=== PATIENT | male | born 1965 | race Caucasian/White ===

== ENCOUNTER 2019-01-04 16:12 | Emergency (ER) | payer MEDICAID ==
[~2019-01-04] VITALS: Ht 172.7 cm; Wt 127.4 kg
[~2019-01-04 16:12] MED LIST: HYDR-4383 PO; NO HOME MEDS
[2019-01-04] MEDS ORDERED: ketorolac trometh inj. 60 MG/2 ML VIAL IM ONE (16:55)
[2019-01-04] MEDS ORDERED: ibuprofen tablet 400 MG TABLET PO ONE (17:00)
[2019-01-04 17:18] LABS: BASOPHILS % (AUTO) 0.4 % (0-1); EOSINOPHILS # (AUTO) 0.1 X10'3 (0-0.9); EOSINOPHILS % (AUTO) 1.4 % (0-6); HEMATOCRIT 53.5 % (42.0-52.0); LYMPHOCYTES # (AUTO) 3.6 X10'3 (1.1-4.8); LYMPHOCYTES % (AUTO) 40.3 % (21-51); MEAN CORPUSCULAR HEMOGLOBIN 32.4 PG (27.0-31.0); MEAN CORPUSCULAR HGB CONC 34.6 g/dL (33.0-36.5); MEAN CORPUSCULAR VOLUME 93.7 FL (78-98); MEAN PLATELET VOLUME 8.8 FL (7.4-10.4); MONOCYTES # (AUTO) 0.8 X10'3 (0-0.9); MONOCYTES % (AUTO) 8.3 % (2-12); NEUTROPHILS # (AUTO) 4.5 X10'3 (1.8-7.7); NEUTROPHILS % (AUTO) 49.6 % (42-75); PLATELET COUNT 224 X10'3 (140-440); RED BLOOD COUNT 5.71 X10'6 (4.70-6.10); RED CELL DISTRIBUTION WIDTH 13.6 % (11.5-14.5)
[2019-01-04 17:21] LABS: HEMOGLOBIN 18.5 g/dl (14.0-17.9)
[2019-01-04 17:24] LABS: ALANINE AMINOTRANSFERASE 73 U/L (12-78); ALBUMIN 4.1 G/DL (3.4-5.0); ALBUMIN/GLOBULIN RATIO 1.1 (1.1-1.5); ALKALINE PHOSPHATASE 59 IU/L (46-116); ANION GAP 9 (8-16); ASPARTATE AMINO TRANSFERASE 43 U/L (10-37); BILIRUBIN,TOTAL 0.5 MG/DL (0.1-1.0); BLOOD UREA NITROGEN 17 MG/DL (7-18); BUN/CREATININE RATIO 18.9 (5.4-32.0); CALCIUM 9.7 MG/DL (8.5-10.1); CHLORIDE 108 MMOL/L (99-107); GLUCOSE 96 MG/DL (70-104); LIPASE 310 U/L (73-393); POTASSIUM 4.2 MMOL/L (3.5-5.1); SODIUM 144 MMOL/L (135-145); TOTAL PROTEIN 7.7 G/DL (6.4-8.2); eGFR 88 ML/MIN
[2019-01-04] MEDS ORDERED: METR-159 PO (17:31)
[2019-01-04] MEDS ORDERED: CIPR-230 PO (17:31)
[2019-01-04 17:42] VITALS: BP 155/88
[2019-01-04 19:54] LABS: CLARITY,URINE CLEAR (Clear); COLOR,URINE YELLOW (Yellow); GLUCOSE, URINE NEGATIVE (Neg); KETONES,URINE NEGATIVE (Neg); LEUKOCYTE ESTERASE ,URINE NEGATIVE (Neg); NITRITES, URINE NEGATIVE (Neg); OCCULT BLOOD,URINE NEGATIVE (Neg); PH,URINE 5.5 (4.8-8.0); PROTEIN,URINE NEGATIVE (Neg); UROBILINOGEN,URINE 0.2 E.U/dL (0.2-1.0)
[2019-01-04 20:05] LABS: UA COLLECTION TYPE CLN CATCH MIDSTREAM
== END 2019-01-04 17:44 | disposition home or self-care (01) ==
LOC: ER 16:13
DX: K57.92 Diverticulitis of intestine, part unspecified, without perforation or abscess without bleeding (principal); K92.1 Melena; Z86.2 Personal history of diseases of the blood and blood-forming organs and certain disorders involving the immune mechanism; F17.200 Nicotine dependence, unspecified, uncomplicated; F12.90 Cannabis use, unspecified, uncomplicated; F15.90 Other stimulant use, unspecified, uncomplicated; Z60.2 Problems related to living alone; Z56.0 Unemployment, unspecified; Z79.899 Other long term (current) drug therapy
CPT/HCPCS: 36415; 80053; 81003; 83690; 85025; 85610; 99283

== ENCOUNTER 2020-07-06 16:42 | Emergency (ER) | payer MEDICAID ==
[~2020-07-06] VITALS: Ht 172.7 cm; Wt 131.0 kg
[2020-07-06 16:59] VITALS: BP 159/100
== END 2020-07-06 17:44 | disposition home or self-care (01) ==
LOC: ER 16:42
DX: S50.812A Abrasion of left forearm, initial encounter (principal); F12.90 Cannabis use, unspecified, uncomplicated; F15.90 Other stimulant use, unspecified, uncomplicated; Z86.69 Personal history of other diseases of the nervous system and sense organs; Z86.14 Personal history of Methicillin resistant Staphylococcus aureus infection; Z72.89 Other problems related to lifestyle; Z60.2 Problems related to living alone; Z56.0 Unemployment, unspecified; Z79.899 Other long term (current) drug therapy; X58.XXXA Exposure to other specified factors, initial encounter; Y93.89 Activity, other specified; Y92.89 Other specified places as the place of occurrence of the external cause; Y99.8 Other external cause status
CPT/HCPCS: 99281; 99284

== ENCOUNTER 2020-09-05 04:51 | Emergency (ER) | payer MEDICAID ==
[~2020-09-05] VITALS: Ht 172.7 cm; Wt 132.3 kg
[2020-09-05 05:58] LABS: CLARITY,URINE CLEAR (Clear); COLOR,URINE YELLOW (Yellow); GLUCOSE, URINE NEGATIVE (Neg); KETONES,URINE NEGATIVE (Neg); LEUKOCYTE ESTERASE ,URINE NEGATIVE (Neg); NITRITES, URINE NEGATIVE (Neg); OCCULT BLOOD,URINE NEGATIVE (Neg); PROTEIN,URINE NEGATIVE (Neg)
[2020-09-05 06:04] LABS: UA COLLECTION TYPE CLN CATCH MIDSTREAM
[2020-09-05 06:06] LABS: BASOPHILS % (AUTO) 0.4 % (0-1); EOSINOPHILS # (AUTO) 0.1 X10'3 (0-0.9); HEMATOCRIT 51.2 % (42.0-52.0); HEMOGLOBIN 17.5 g/dl (14.0-17.9); LYMPHOCYTES # (AUTO) 3.1 X10'3 (1.1-4.8); LYMPHOCYTES % (AUTO) 26.6 % (21-51); MEAN CORPUSCULAR HEMOGLOBIN 32.1 PG (27.0-31.0); MEAN CORPUSCULAR HGB CONC 34.3 g/dL (33.0-36.5); MEAN CORPUSCULAR VOLUME 93.7 FL (78-98); MEAN PLATELET VOLUME 8.9 FL (7.4-10.4); MONOCYTES # (AUTO) 0.9 X10'3 (0-0.9); NEUTROPHILS # (AUTO) 7.5 X10'3 (1.8-7.7); PLATELET COUNT 227 X10'3 (140-440); RED BLOOD COUNT 5.46 X10'6 (4.70-6.10); RED CELL DISTRIBUTION WIDTH 13.4 % (11.5-14.5); WHITE BLOOD COUNT 11.7 X10'3 (4.5-11.0)
[2020-09-05 06:11] LABS: ALANINE AMINOTRANSFERASE 56 U/L (12-78); ALBUMIN 3.9 G/DL (3.4-5.0); ALBUMIN/GLOBULIN RATIO 1.2 (1.1-1.5); ALKALINE PHOSPHATASE 64 IU/L (46-116); ANION GAP 7 (8-16); ASPARTATE AMINO TRANSFERASE 35 U/L (10-37); BILIRUBIN,TOTAL 0.9 MG/DL (0.1-1.0); BLOOD UREA NITROGEN 17 MG/DL (7-18); BUN/CREATININE RATIO 17.2 (5.4-32.0); CALCIUM 9.2 MG/DL (8.5-10.1); CHLORIDE 108 MMOL/L (99-107); CREATININE 0.99 MG/DL (0.60-1.10); GLUCOSE 113 MG/DL (70-104); LIPASE 186 U/L (73-393); POTASSIUM 4.2 MMOL/L (3.5-5.1); SODIUM 144 MMOL/L (135-145); TOTAL CARBON DIOXIDE 28.9 MMOL/L (24-32); TOTAL PROTEIN 7.1 G/DL (6.4-8.2); eGFR 78 ML/MIN
[2020-09-05] MEDS ORDERED: ondansetron/PF 4mg/2ml inj IV ONE (07:15)
[2020-09-05] MEDS ORDERED: normal saline 1000ML IV soln IVB ONE (07:15)
[2020-09-05] MEDS ORDERED: morphine 4 MG/ML inj SYRINge IV ONE (07:15)
[2020-09-05] MEDS ORDERED: ciprofloxacin 250mg tablet PO ONE (07:15)
[2020-09-05] MEDS ORDERED: metroNIDAZOLE 500mg tablet PO ONE (07:15)
[2020-09-05] MEDS ORDERED: CIPR-259 PO (09:03)
[2020-09-05] MEDS ORDERED: ONDA4TAB6 PO (09:03)
[2020-09-05] MEDS ORDERED: METR500T PO (09:03)
[2020-09-05] MEDS ORDERED: HYDR-3964 PO (09:03)
[2020-09-05 09:39] VITALS: BP 120/83
== END 2020-09-05 09:54 | disposition home or self-care (01) ==
LOC: ER 04:52
DX: K57.32 Diverticulitis of large intestine without perforation or abscess without bleeding (principal); F12.90 Cannabis use, unspecified, uncomplicated; F15.90 Other stimulant use, unspecified, uncomplicated; Z56.0 Unemployment, unspecified; Z86.14 Personal history of Methicillin resistant Staphylococcus aureus infection
CPT/HCPCS: 36415; 74176; 80053; 81003; 83690; 85025; 96361; 96374; 96375; 99284; J2270; J2405; J7030; J3490

== ENCOUNTER 2021-01-05 18:11 | Emergency (ER) | payer MEDICAID ==
[~2021-01-05] VITALS: Ht 172.7 cm; Wt 122.7 kg
[~2021-01-05 18:11] MED LIST changes: +ONDA4TAB6 PO
[2021-01-05 18:46] VITALS: BP 137/90
[2021-01-05] MEDS ORDERED: diazepam 5mg tablet PO ONE (21:00)
[2021-01-05] MEDS ORDERED: ibuprofen tablet 400 MG TABLET PO ONE (21:05)
[2021-01-05] MEDS ORDERED: DIAZ5TAB PO (21:23)
== END 2021-01-05 21:29 | disposition home or self-care (01) ==
LOC: ER 18:11
DX: M54.5 Low back pain (principal); F17.210 Nicotine dependence, cigarettes, uncomplicated; F12.10 Cannabis abuse, uncomplicated; F15.10 Other stimulant abuse, uncomplicated; Z59.0 Homelessness; Z79.899 Other long term (current) drug therapy
CPT/HCPCS: 99283

== ENCOUNTER 2021-03-14 15:42 | Emergency (ER) | payer MEDICAID ==
[~2021-03-14] VITALS: Ht 172.7 cm; Wt 127.3 kg
[~2021-03-14 15:42] MED LIST changes: +DIAZ5TAB PO
[2021-03-14 16:12] LABS: BASOPHILS % (AUTO) 0.3 % (0-1); EOSINOPHILS # (AUTO) 0.1 X10'3 (0-0.9); EOSINOPHILS % (AUTO) 0.8 % (0-6); HEMATOCRIT 50.4 % (42.0-52.0); HEMOGLOBIN 17.5 g/dl (14.0-17.9); LYMPHOCYTES # (AUTO) 3.1 X10'3 (1.1-4.8); LYMPHOCYTES % (AUTO) 26.7 % (21-51); MEAN CORPUSCULAR HEMOGLOBIN 32.5 PG (27.0-31.0); MEAN CORPUSCULAR HGB CONC 34.7 g/dL (33.0-36.5); MEAN CORPUSCULAR VOLUME 93.7 FL (78-98); MONOCYTES # (AUTO) 0.7 X10'3 (0-0.9); MONOCYTES % (AUTO) 5.8 % (2-12); NEUTROPHILS # (AUTO) 7.7 X10'3 (1.8-7.7); NEUTROPHILS % (AUTO) 66.4 % (42-75); PLATELET COUNT 234 X10'3 (140-440); RED BLOOD COUNT 5.38 X10'6 (4.70-6.10); RED CELL DISTRIBUTION WIDTH 12.7 % (11.5-14.5); WHITE BLOOD COUNT 11.6 X10'3 (4.5-11.0)
[2021-03-14 16:29] LABS: ALANINE AMINOTRANSFERASE 60 U/L (12-78); ALBUMIN/GLOBULIN RATIO 1.2 (1.1-1.5); ALKALINE PHOSPHATASE 55 IU/L (46-116); ANION GAP 9 (8-16); ASPARTATE AMINO TRANSFERASE 39 U/L (10-37); BILIRUBIN,TOTAL 0.8 MG/DL (0.1-1.0); BLOOD UREA NITROGEN 18 MG/DL (7-18); BUN/CREATININE RATIO 17.5 (5.4-32.0); CALCIUM 8.8 MG/DL (8.5-10.1); CHLORIDE 108 MMOL/L (99-107); CREATININE 1.03 MG/DL (0.60-1.10); GLUCOSE 120 MG/DL (70-104); LIPASE 219 U/L (73-393); POTASSIUM 3.6 MMOL/L (3.5-5.1); SODIUM 145 MMOL/L (135-145); TOTAL PROTEIN 7.4 G/DL (6.4-8.2); eGFR 75 ML/MIN
[2021-03-14] MEDS ORDERED: AMOX-422 PO (18:00)
[2021-03-14 18:29] VITALS: BP 119/85
--- NOTE | 2021-03-14 18:29 | NUR ---
Pt given and understands d/c instructions. Ambulatory with a steady gait.
== END 2021-03-14 18:25 | disposition home or self-care (01) ==
LOC: ER 15:42
DX: K57.92 Diverticulitis of intestine, part unspecified, without perforation or abscess without bleeding (principal); F12.90 Cannabis use, unspecified, uncomplicated; F15.90 Other stimulant use, unspecified, uncomplicated; F17.200 Nicotine dependence, unspecified, uncomplicated; Z56.0 Unemployment, unspecified; Z87.81 Personal history of (healed) traumatic fracture; Z86.14 Personal history of Methicillin resistant Staphylococcus aureus infection; Z72.89 Other problems related to lifestyle
CPT/HCPCS: 36415; 80053; 83690; 85025; 99283

== ENCOUNTER 2021-07-30 15:45 | Emergency (ER) | payer MEDICAID ==
[~2021-07-30] VITALS: Ht 172.7 cm; Wt 150.0 kg
[2021-07-30 15:52] VITALS: BP 154/64
[2021-07-30 17:19] LABS: CLARITY,URINE CLEAR (Clear); COLOR,URINE YELLOW (Yellow); GLUCOSE, URINE NEGATIVE (Neg); KETONES,URINE NEGATIVE (Neg); LEUKOCYTE ESTERASE ,URINE NEGATIVE (Neg); NITRITES, URINE NEGATIVE (Neg); OCCULT BLOOD,URINE NEGATIVE (Neg); PH,URINE 5.5 (4.8-8.0); PROTEIN,URINE NEGATIVE (Neg); UROBILINOGEN,URINE 0.2 E.U/dL (0.2-1.0)
[2021-07-30 17:25] LABS: UA COLLECTION TYPE VOIDED
[2021-07-30] MEDS ORDERED: ibuprofen tablet 400 MG TABLET PO ONE (17:30)
[2021-07-30] MEDS ORDERED: IBUP-1986 PO (17:30)
[2021-07-30] MEDS ORDERED: cyclobenzaprine 10mg tablet PO ONE (17:30)
[2021-07-30] MEDS ORDERED: CYCL-1 PO (17:30)
== END 2021-07-30 17:49 | disposition home or self-care (01) ==
LOC: ER 15:46
DX: S39.012A Strain of muscle, fascia and tendon of lower back, initial encounter (principal); M54.89 Other dorsalgia; F12.90 Cannabis use, unspecified, uncomplicated; F15.90 Other stimulant use, unspecified, uncomplicated; Z86.14 Personal history of Methicillin resistant Staphylococcus aureus infection; Z86.69 Personal history of other diseases of the nervous system and sense organs; Z60.2 Problems related to living alone; Z72.89 Other problems related to lifestyle; Z56.0 Unemployment, unspecified; Z79.899 Other long term (current) drug therapy; X58.XXXA Exposure to other specified factors, initial encounter; Y93.89 Activity, other specified; Y92.89 Other specified places as the place of occurrence of the external cause; Y99.8 Other external cause status
CPT/HCPCS: 81003; 99283

== ENCOUNTER 2021-11-28 08:53 | Emergency (ER) | payer MEDICAID ==
[~2021-11-28] VITALS: Ht 172.7 cm; Wt 138.0 kg
[~2021-11-28 08:53] MED LIST changes: +CYCL-1 PO; +IBUP-1986 PO
[2021-11-28 10:37] LABS: BASOPHILS % (AUTO) 0.4 % (0-1); EOSINOPHILS # (AUTO) 0.1 X10'3 (0-0.9); EOSINOPHILS % (AUTO) 1.5 % (0-6); HEMATOCRIT 51.7 % (42.0-52.0); HEMOGLOBIN 17.9 g/dl (14.0-17.9); LYMPHOCYTES # (AUTO) 2.7 X10'3 (1.1-4.8); LYMPHOCYTES % (AUTO) 40.7 % (21-51); MEAN CORPUSCULAR HEMOGLOBIN 31.2 PG (27.0-31.0); MEAN CORPUSCULAR HGB CONC 34.7 g/dL (33.0-36.5); MEAN CORPUSCULAR VOLUME 89.8 FL (78-98); MEAN PLATELET VOLUME 8.2 FL (7.4-10.4); MONOCYTES # (AUTO) 0.6 X10'3 (0-0.9); MONOCYTES % (AUTO) 9.4 % (2-12); NEUTROPHILS # (AUTO) 3.2 X10'3 (1.8-7.7); PLATELET COUNT 224 X10'3 (140-440); RED BLOOD COUNT 5.75 X10'6 (4.70-6.10); RED CELL DISTRIBUTION WIDTH 12.6 % (11.5-14.5); WHITE BLOOD COUNT 6.7 X10'3 (4.5-11.0)
[2021-11-28 10:40] LABS: CLARITY,URINE CLEAR (Clear); COLOR,URINE YELLOW (Yellow); GLUCOSE, URINE NEGATIVE (Neg); KETONES,URINE NEGATIVE (Neg); LEUKOCYTE ESTERASE ,URINE NEGATIVE (Neg); NITRITES, URINE NEGATIVE (Neg); OCCULT BLOOD,URINE NEGATIVE (Neg); PROTEIN,URINE NEGATIVE (Neg); UROBILINOGEN,URINE 0.2 E.U/dL (0.2-1.0)
[2021-11-28 10:41] LABS: UA COLLECTION TYPE CLN CATCH MIDSTREAM
[2021-11-28 10:50] LABS: ALANINE AMINOTRANSFERASE 56 U/L (12-78); ALBUMIN 3.9 G/DL (3.4-5.0); ALBUMIN/GLOBULIN RATIO 1.2 (1.1-1.5); ALKALINE PHOSPHATASE 54 IU/L (46-116); ANION GAP 8 (8-16); ASPARTATE AMINO TRANSFERASE 12 U/L (10-37); BILIRUBIN,TOTAL 0.6 MG/DL (0.1-1.0); BLOOD UREA NITROGEN 20 MG/DL (7-18); BUN/CREATININE RATIO 24.7 (5.4-32.0); CHLORIDE 107 MMOL/L (99-107); CREATININE 0.81 MG/DL (0.60-1.10); GLUCOSE 109 MG/DL (70-104); LIPASE 206 U/L (73-393); POTASSIUM 4.1 MMOL/L (3.5-5.1); SODIUM 142 MMOL/L (135-145); TOTAL CARBON DIOXIDE 26.9 MMOL/L (24-32); TOTAL PROTEIN 7.2 G/DL (6.4-8.2); eGFR > 90 ML/MIN
[2021-11-28] MEDS ORDERED: LEVO500T90 PO (11:05)
[2021-11-28] MEDS ORDERED: metroNIDAZOLE 500mg tablet PO ONE (11:05)
[2021-11-28] MEDS ORDERED: levoFLOXACIN 250mg tablet PO ONE (11:05)
[2021-11-28] MEDS ORDERED: METR-159 PO (11:05)
[2021-11-28 11:29] VITALS: BP 127/84
== END 2021-11-28 11:30 | disposition home or self-care (01) ==
LOC: ER 08:54
DX: R10.9 Unspecified abdominal pain (principal); F12.10 Cannabis abuse, uncomplicated; F15.10 Other stimulant abuse, uncomplicated; Z86.14 Personal history of Methicillin resistant Staphylococcus aureus infection; Z87.81 Personal history of (healed) traumatic fracture; Z56.0 Unemployment, unspecified; Z79.899 Other long term (current) drug therapy; Z88.8 Allergy status to other drugs, medicaments and biological substances
CPT/HCPCS: 36415; 80053; 81003; 83690; 85025; 99283

== ENCOUNTER 2022-03-13 10:03 | Emergency (ER) | payer MEDICAID ==
[~2022-03-13] VITALS: Ht 172.7 cm; Wt 136.4 kg
[2022-03-13 10:11] VITALS: BP 165/96
[2022-03-13 10:31] LABS: BASOPHILS % (AUTO) 0.2 % (0-1); EOSINOPHILS # (AUTO) 0.1 X10'3 (0-0.9); EOSINOPHILS % (AUTO) 0.8 % (0-6); HEMATOCRIT 50.5 % (42.0-52.0); HEMOGLOBIN 17.2 g/dl (14.0-17.9); LYMPHOCYTES # (AUTO) 3.2 X10'3 (1.1-4.8); LYMPHOCYTES % (AUTO) 31.5 % (21-51); MEAN CORPUSCULAR HEMOGLOBIN 31.7 PG (27.0-31.0); MEAN CORPUSCULAR HGB CONC 34.1 g/dL (33.0-36.5); MEAN CORPUSCULAR VOLUME 93.2 FL (78-98); MEAN PLATELET VOLUME 8.7 FL (7.4-10.4); MONOCYTES # (AUTO) 0.7 X10'3 (0-0.9); MONOCYTES % (AUTO) 7.3 % (2-12); NEUTROPHILS # (AUTO) 6.2 X10'3 (1.8-7.7); NEUTROPHILS % (AUTO) 60.2 % (42-75); PLATELET COUNT 214 X10'3 (140-440); RED BLOOD COUNT 5.42 X10'6 (4.70-6.10); RED CELL DISTRIBUTION WIDTH 13.4 % (11.5-14.5); WHITE BLOOD COUNT 10.3 X10'3 (4.5-11.0)
[2022-03-13 10:45] LABS: ALANINE AMINOTRANSFERASE 37 U/L (12-78); ALBUMIN/GLOBULIN RATIO 1.2 (1.1-1.5); ALKALINE PHOSPHATASE 49 IU/L (46-116); ANION GAP 7 (8-16); ASPARTATE AMINO TRANSFERASE 35 U/L (10-37); BILIRUBIN,TOTAL 0.4 MG/DL (0.1-1.0); BLOOD UREA NITROGEN 19 MG/DL (7-18); BUN/CREATININE RATIO 16.8 (5.4-32.0); CALCIUM 9.1 MG/DL (8.5-10.1); CHLORIDE 106 MMOL/L (99-107); CREATININE 1.13 MG/DL (0.60-1.10); GLUCOSE 129 MG/DL (70-104); LIPASE 212 U/L (73-393); POTASSIUM 4.5 MMOL/L (3.5-5.1); SODIUM 141 MMOL/L (135-145); TOTAL CARBON DIOXIDE 28.4 MMOL/L (24-32); TOTAL PROTEIN 7.3 G/DL (6.4-8.2); eGFR 67 ML/MIN
--- NOTE | 2022-03-13 14:34 | NUR ---
pt is eating sandwhich in lobby, does not appear in distress.
[2022-03-13 15:46] LABS: CLARITY,URINE CLEAR (Clear); COLOR,URINE YELLOW (Yellow); GLUCOSE, URINE NEGATIVE (Neg); KETONES,URINE NEGATIVE (Neg); LEUKOCYTE ESTERASE ,URINE NEGATIVE (Neg); NITRITES, URINE NEGATIVE (Neg); OCCULT BLOOD,URINE NEGATIVE (Neg); PH,URINE 5.5 (4.8-8.0); PROTEIN,URINE NEGATIVE (Neg); UROBILINOGEN,URINE 0.2 E.U/dL (0.2-1.0)
[2022-03-13 15:53] LABS: UA COLLECTION TYPE VOIDED
[2022-03-13 16:41] LABS: OCCULT BLOOD STOOL NEGATIVE (Neg)
[2022-03-13] MEDS ORDERED: amox tr/potassium clavulanate 875/125mg TAB PO ONE (17:20)
[2022-03-13] MEDS ORDERED: ibuprofen tablet 400 MG TABLET PO ONE (17:20)
[2022-03-13] MEDS ORDERED: AMOX-117 PO (17:23)
== END 2022-03-13 17:46 | disposition home or self-care (01) ==
LOC: ER 10:04
DX: K57.92 Diverticulitis of intestine, part unspecified, without perforation or abscess without bleeding (principal); F12.10 Cannabis abuse, uncomplicated; F15.10 Other stimulant abuse, uncomplicated; Z86.14 Personal history of Methicillin resistant Staphylococcus aureus infection; Z87.81 Personal history of (healed) traumatic fracture; Z59.00 Homelessness unspecified; Z79.899 Other long term (current) drug therapy
CPT/HCPCS: 36415; 74177; 80053; 81003; 82272; 83690; 85025; 99285

== ENCOUNTER 2022-06-18 08:30 | Emergency (ER) | payer MEDICAID ==
[~2022-06-18] VITALS: Ht 172.7 cm; Wt 134.5 kg
--- NOTE | 2022-06-18 09:54 | NUR ---
I have reviewed and agree with all interventions, assessments performed and documented by JADEN Garzon.
[2022-06-18 11:05] LABS: BASOPHILS % (AUTO) 0.3 % (0-1); EOSINOPHILS # (AUTO) 0.1 X10'3 (0-0.9); EOSINOPHILS % (AUTO) 0.7 % (0-6); HEMATOCRIT 48.2 % (42.0-52.0); HEMOGLOBIN 16.9 g/dl (14.0-17.9); LYMPHOCYTES # (AUTO) 3.3 X10'3 (1.1-4.8); LYMPHOCYTES % (AUTO) 31.3 % (21-51); MEAN CORPUSCULAR VOLUME 91.3 FL (78-98); MEAN PLATELET VOLUME 8.2 FL (7.4-10.4); MONOCYTES # (AUTO) 0.7 X10'3 (0-0.9); MONOCYTES % (AUTO) 6.3 % (2-12); NEUTROPHILS # (AUTO) 6.5 X10'3 (1.8-7.7); NEUTROPHILS % (AUTO) 61.4 % (42-75); PLATELET COUNT 237 X10'3 (140-440); RED BLOOD COUNT 5.28 X10'6 (4.70-6.10); RED CELL DISTRIBUTION WIDTH 12.9 % (11.5-14.5); WHITE BLOOD COUNT 10.6 X10'3 (4.5-11.0)
[2022-06-18 11:22] LABS: ALANINE AMINOTRANSFERASE 37 U/L (12-78); ALBUMIN 4.1 G/DL (3.4-5.0); ALBUMIN/GLOBULIN RATIO 1.3 (1.1-1.5); ALKALINE PHOSPHATASE 50 IU/L (46-116); ANION GAP 7 (8-16); ASPARTATE AMINO TRANSFERASE 27 U/L (10-37); BILIRUBIN,TOTAL 0.5 MG/DL (0.1-1.0); BLOOD UREA NITROGEN 15 MG/DL (7-18); CALCIUM 9.4 MG/DL (8.5-10.1); CHLORIDE 102 MMOL/L (99-107); GLUCOSE 98 MG/DL (70-104); LIPASE 154 U/L (73-393); POTASSIUM 4.4 MMOL/L (3.5-5.1); SODIUM 138 MMOL/L (135-145); TOTAL CARBON DIOXIDE 29.5 MMOL/L (24-32); TOTAL PROTEIN 7.3 G/DL (6.4-8.2); eGFR 77 ML/MIN
[2022-06-18 11:48] LABS: CLARITY,URINE CLEAR (Clear); COLOR,URINE YELLOW (Yellow); GLUCOSE, URINE NEGATIVE (Neg); KETONES,URINE NEGATIVE (Neg); LEUKOCYTE ESTERASE ,URINE NEGATIVE (Neg); NITRITES, URINE NEGATIVE (Neg); OCCULT BLOOD,URINE NEGATIVE (Neg); PH,URINE 5.5 (4.8-8.0); PROTEIN,URINE NEGATIVE (Neg); UROBILINOGEN,URINE 0.2 E.U/dL (0.2-1.0)
[2022-06-18] MEDS ORDERED: ibuprofen 200mg tablet PO ONE (11:50)
[2022-06-18 11:54] LABS: UA COLLECTION TYPE CLN CATCH MIDSTREAM
[2022-06-18 13:03] VITALS: BP 123/93
[2022-06-18] MEDS ORDERED: HYDROcodone/acetaminophen 10/325mg tab PO ONE (13:15)
[2022-06-18] MEDS ORDERED: METR-159 PO (13:18)
[2022-06-18] MEDS ORDERED: CIPR-202 PO (13:18)
== END 2022-06-18 13:32 | disposition home or self-care (01) ==
LOC: ER 08:30
DX: R10.32 Left lower quadrant pain (principal); K57.92 Diverticulitis of intestine, part unspecified, without perforation or abscess without bleeding; R07.89 Other chest pain; Z86.69 Personal history of other diseases of the nervous system and sense organs; Z86.14 Personal history of Methicillin resistant Staphylococcus aureus infection; Z72.89 Other problems related to lifestyle; Z60.2 Problems related to living alone; Z56.0 Unemployment, unspecified; Z79.2 Long term (current) use of antibiotics; Z79.899 Other long term (current) drug therapy
CPT/HCPCS: 36415; 80053; 81003; 83690; 85025; 99284

== ENCOUNTER 2022-07-23 05:13 | Emergency (ER) | payer MEDICAID ==
[~2022-07-23] VITALS: Ht 172.7 cm; Wt 134.6 kg
[2022-07-23 05:54] LABS: BASOPHILS % (AUTO) 0.1 % (0-1); EOSINOPHILS # (AUTO) 0.1 X10'3 (0-0.9); EOSINOPHILS % (AUTO) 0.8 % (0-6); HEMATOCRIT 47.6 % (42.0-52.0); HEMOGLOBIN 16.6 g/dl (14.0-17.9); LYMPHOCYTES % (AUTO) 18.4 % (21-51); MEAN CORPUSCULAR HEMOGLOBIN 31.8 PG (27.0-31.0); MEAN CORPUSCULAR HGB CONC 34.9 g/dL (33.0-36.5); MEAN CORPUSCULAR VOLUME 91.2 FL (78-98); MEAN PLATELET VOLUME 8.4 FL (7.4-10.4); MONOCYTES # (AUTO) 1.1 X10'3 (0-0.9); MONOCYTES % (AUTO) 10.3 % (2-12); NEUTROPHILS # (AUTO) 7.7 X10'3 (1.8-7.7); NEUTROPHILS % (AUTO) 70.4 % (42-75); PLATELET COUNT 192 X10'3 (140-440); RED BLOOD COUNT 5.22 X10'6 (4.70-6.10); RED CELL DISTRIBUTION WIDTH 13.4 % (11.5-14.5)
[2022-07-23 06:17] LABS: ALANINE AMINOTRANSFERASE 27 U/L (12-78); ALBUMIN 3.9 G/DL (3.4-5.0); ALBUMIN/GLOBULIN RATIO 1.2 (1.1-1.5); ALKALINE PHOSPHATASE 53 IU/L (46-116); ANION GAP 6 (8-16); ASPARTATE AMINO TRANSFERASE 19 U/L (10-37); BILIRUBIN,TOTAL 0.5 MG/DL (0.1-1.0); BLOOD UREA NITROGEN 16 MG/DL (7-18); BUN/CREATININE RATIO 17.2 (5.4-32.0); CALCIUM 9.2 MG/DL (8.5-10.1); CHLORIDE 106 MMOL/L (99-107); CREATININE 0.93 MG/DL (0.60-1.10); GLUCOSE 114 MG/DL (70-104); LIPASE 167 U/L (73-393); POTASSIUM 4.1 MMOL/L (3.5-5.1); SODIUM 140 MMOL/L (135-145); TOTAL CARBON DIOXIDE 28.2 MMOL/L (24-32); TOTAL PROTEIN 7.1 G/DL (6.4-8.2); eGFR 84 ML/MIN
[2022-07-23 07:13] VITALS: BP 141/97
[2022-07-23 07:33] LABS: CLARITY,URINE CLEAR (Clear); COLOR,URINE YELLOW (Yellow); GLUCOSE, URINE NEGATIVE (Neg); KETONES,URINE NEGATIVE (Neg); LEUKOCYTE ESTERASE ,URINE NEGATIVE (Neg); NITRITES, URINE NEGATIVE (Neg); OCCULT BLOOD,URINE NEGATIVE (Neg); PROTEIN,URINE NEGATIVE (Neg); UA COLLECTION TYPE VOIDED; UROBILINOGEN,URINE 0.2 E.U/dL (0.2-1.0)
[2022-07-23] MEDS ORDERED: normal saline 1000ML IV soln IVB ONE (08:15)
[2022-07-23] MEDS ORDERED: morphine 4 MG/ML inj SYRINge IV ONE (08:15)
[2022-07-23] MEDS ORDERED: piperacillin/tazo 3.375gm/50ml 50 ML IV ONE (08:15)
[2022-07-23] MEDS ORDERED: AMOX-117 PO (08:22)
== END 2022-07-23 09:24 | disposition home or self-care (01) ==
LOC: ER 05:14
DX: K57.92 Diverticulitis of intestine, part unspecified, without perforation or abscess without bleeding (principal); J34.0 Abscess, furuncle and carbuncle of nose; Z86.14 Personal history of Methicillin resistant Staphylococcus aureus infection; Z60.2 Problems related to living alone; Z72.89 Other problems related to lifestyle; Z56.0 Unemployment, unspecified; Z79.899 Other long term (current) drug therapy
CPT/HCPCS: 36415; 80053; 81003; 83690; 85025; 96365; 96375; 99284; J2270; J2543; J7030

== ENCOUNTER 2022-07-31 14:28 | Inpatient (IN) | payer MEDICAID ==
[~2022-07-31] VITALS: Ht 175.3 cm; Wt 138.2 kg
[~2022-07-31 14:28] MED LIST changes: +AMOX-117 PO
[2022-07-31 15:22] LABS: BASOPHILS % (AUTO) 0.3 % (0-1); EOSINOPHILS # (AUTO) 0.1 X10'3 (0-0.9); LYMPHOCYTES # (AUTO) 3.1 X10'3 (1.1-4.8)
[2022-07-31 15:24] LABS: EOSINOPHILS % (AUTO) 0.7 % (0-6); HEMATOCRIT 51.3 % (42.0-52.0); HEMOGLOBIN 17.8 g/dl (14.0-17.9); MEAN CORPUSCULAR HEMOGLOBIN 31.5 PG (27.0-31.0); MEAN CORPUSCULAR HGB CONC 34.7 g/dL (33.0-36.5); MEAN CORPUSCULAR VOLUME 90.8 FL (78-98); MEAN PLATELET VOLUME 8.4 FL (7.4-10.4); MONOCYTES # (AUTO) 1.6 X10'3 (0-0.9); MONOCYTES % (AUTO) 11.4 % (2-12); NEUTROPHILS # (AUTO) 9.4 X10'3 (1.8-7.7); NEUTROPHILS % (AUTO) 65.6 % (42-75); PLATELET COUNT 314 X10'3 (140-440); RED BLOOD COUNT 5.65 X10'6 (4.70-6.10); RED CELL DISTRIBUTION WIDTH 13.4 % (11.5-14.5); WHITE BLOOD COUNT 14.3 X10'3 (4.5-11.0)
[2022-07-31 15:30] LABS: ALANINE AMINOTRANSFERASE 38 U/L (12-78); ALBUMIN 4.1 G/DL (3.4-5.0); ALKALINE PHOSPHATASE 73 IU/L (46-116); ANION GAP 7 (8-16); ASPARTATE AMINO TRANSFERASE 15 U/L (10-37); BILIRUBIN,TOTAL 0.4 MG/DL (0.1-1.0); BLOOD UREA NITROGEN 21 MG/DL (7-18); BUN/CREATININE RATIO 21.4 (5.4-32.0); CALCIUM 9.7 MG/DL (8.5-10.1); CHLORIDE 104 MMOL/L (99-107); CREATININE 0.98 MG/DL (0.60-1.10); GLUCOSE 99 MG/DL (70-104); LIPASE 199 U/L (73-393); POTASSIUM 3.9 MMOL/L (3.5-5.1); SODIUM 142 MMOL/L (135-145); TOTAL CARBON DIOXIDE 31.5 MMOL/L (24-32); TOTAL PROTEIN 8.2 G/DL (6.4-8.2); eGFR 79 ML/MIN
[2022-07-31] MEDS ORDERED: piperacillin/tazo 3.375gm/50ml 50 ML IV STA (18:47)
[2022-07-31] MEDS ORDERED: ondansetron/PF 4mg/2ml inj IV ONE (18:50)
[2022-07-31] MEDS ORDERED: magnesium 4gm in 100ml NS 100 ML IV PRN (20:05)
[2022-07-31] MEDS ORDERED: ondansetron/PF 4mg/2ml inj IV PRN (20:05)
[2022-07-31] MEDS ORDERED: HYDROcodone/acetaminophen 10/325mg tab PO PRN (20:05)
[2022-07-31] MEDS ORDERED: potassium Cl 20 mEq SR tablet PO PRN ×2 (20:05)
[2022-07-31] MEDS ORDERED: acetaminophen 325mg tablet PO PRN ×2 (20:05)
[2022-07-31] MEDS ORDERED: magnesium Cl slow-release 64mg tablet PO PRN (20:05)
[2022-07-31] MEDS ORDERED: potassium Cl 40MEQ/1/2NS 520ml 520 ML IV PRN (20:05)
[2022-07-31] MEDS ORDERED: morphine 2 MG/ML inj. syringe IV PRN ×2 (20:05)
[2022-07-31] MEDS ORDERED: HYDROcodone/acetaminophen 5mg/325mg tablet PO PRN (20:05)
[2022-07-31] MEDS: morphine 4 MG/ML inj SYRINge IV PRN ×2 (20:19→22:54)
[2022-07-31 20:26] LABS: CLARITY,URINE CLEAR (Clear); COLOR,URINE YELLOW (Yellow); GLUCOSE, URINE NEGATIVE (Neg); KETONES,URINE NEGATIVE (Neg); LEUKOCYTE ESTERASE ,URINE NEGATIVE (Neg); NITRITES, URINE NEGATIVE (Neg); OCCULT BLOOD,URINE NEGATIVE (Neg); PROTEIN,URINE NEGATIVE (Neg); UROBILINOGEN,URINE 0.2 E.U/dL (0.2-1.0)
[2022-07-31] MEDS: normal saline 1000ml 1,000 ML IV SCH (20:26)
[2022-07-31 20:35] LABS: UA COLLECTION TYPE CLN CATCH MIDSTREAM
[2022-07-31] MEDS ORDERED: temazepam 15mg capsule PO PRN (21:00)
--- NOTE | 2022-07-31 22:44 | NUR ---
PT PLACED ONTO INPATIENT BED
--- NOTE | 2022-08-01 03:15 | NUR ---
DURING AM LAB DRAW PT REQUESTED PRN PAIN MED
[2022-08-01 03:28] LABS: BASOPHILS % (AUTO) 0.3 % (0-1); EOSINOPHILS # (AUTO) 0.1 X10'3 (0-0.9); HEMATOCRIT 47.1 % (42.0-52.0); HEMOGLOBIN 16.3 g/dl (14.0-17.9); LYMPHOCYTES # (AUTO) 3.8 X10'3 (1.1-4.8); LYMPHOCYTES % (AUTO) 36.9 % (21-51); MEAN CORPUSCULAR HEMOGLOBIN 31.5 PG (27.0-31.0); MEAN CORPUSCULAR HGB CONC 34.6 g/dL (33.0-36.5); MEAN CORPUSCULAR VOLUME 90.9 FL (78-98); MEAN PLATELET VOLUME 8.7 FL (7.4-10.4); MONOCYTES # (AUTO) 1.2 X10'3 (0-0.9); MONOCYTES % (AUTO) 11.9 % (2-12); NEUTROPHILS # (AUTO) 5.2 X10'3 (1.8-7.7); NEUTROPHILS % (AUTO) 49.9 % (42-75); PLATELET COUNT 279 X10'3 (140-440); RED BLOOD COUNT 5.18 X10'6 (4.70-6.10); RED CELL DISTRIBUTION WIDTH 13.6 % (11.5-14.5); WHITE BLOOD COUNT 10.4 X10'3 (4.5-11.0)
[2022-08-01 03:45] LABS: ALANINE AMINOTRANSFERASE 30 U/L (12-78); ALBUMIN 3.6 G/DL (3.4-5.0); ALKALINE PHOSPHATASE 64 IU/L (46-116); ANION GAP 9 (8-16); ASPARTATE AMINO TRANSFERASE 13 U/L (10-37); BILIRUBIN,TOTAL 0.6 MG/DL (0.1-1.0); BLOOD UREA NITROGEN 20 MG/DL (7-18); BUN/CREATININE RATIO 18.2 (5.4-32.0); CALCIUM 9.2 MG/DL (8.5-10.1); CHLORIDE 105 MMOL/L (99-107); GLUCOSE 119 MG/DL (70-104); POTASSIUM 4.1 MMOL/L (3.5-5.1); SODIUM 141 MMOL/L (135-145); TOTAL CARBON DIOXIDE 27.4 MMOL/L (24-32); TOTAL PROTEIN 7.2 G/DL (6.4-8.2); eGFR 69 ML/MIN
[2022-08-01] MEDS: piperacillin/tazo 3.375gm/50ml 50 ML IV SCH ×3 (04:25→19:59)
[2022-08-01] MEDS: normal saline 1000ml 1,000 ML IV SCH ×2 (07:33→17:25)
[2022-08-01 08:15] VITALS: BP 115/83
[2022-08-01 10:34] VITALS: BP 117/80
[2022-08-01 12:00] VITALS: BP 101/72
--- NOTE | 2022-08-01 15:03 | NUR ---
MD requested pt be seen by RD for diverticulitis. Pt seen at bedside with thor dickson provided with written and verbal diverticulitis nutrition therapy education with a list of fiber content in food. Pt inquired about nutrition and liver cirrhosis. Pt/SO provided with verbal cirrhosis nutrition therapy education. All of patient and SO's questions were answered at this time. RD contact information provided and pt encouraged to reach out if needed. Pt states he has an appointment with an RD at [facility] next month for f/u diverticulitis nutrition therapy education. Pt endorses a good appetite, currently on a clear liquid diet documented with 100% PO intake of first meal. Recommend advancing to low fiber diet as medically indicated. Pt denies food allergies or difficulty chewing/swallowing. 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 Pt states he takes a probiotic. Will continue to follow and make recommendations as appropriate. Recommendations: 1) Advance to low fiber diet as medically indicated; add Na restricted diet to prevent fluid retention with h/o liver cirrhosis per MD discretion 2) Monitor need for ONS/additional protein with diet advancement 3) Bowel care per rx 4) Weekly scaled weights Addendum: 08/01/22 at [address] Amended: Links added.
--- NOTE | 2022-08-01 15:38 | NUR ---
PAGER ID: [phone] MESSAGE: [phone] Olena R: pt has outpatient labs due today, hes asking if there is anyway they can be drawn while he's here. AFP tumor marker & hepatitis C viral RNA? thank you, matt [phone]
[2022-08-01 18:00] VITALS: BP 117/82
--- NOTE | 2022-08-01 18:15 | NUR ---
Problems reprioritized. Patient report given, questions answered & plan of care reviewed with SHIRA Durant.
[2022-08-01 22:00] VITALS: BP 92/55
[2022-08-02] MEDS: normal saline 1000ml 1,000 ML IV SCH (03:17)
[2022-08-02] MEDS: piperacillin/tazo 3.375gm/50ml 50 ML IV SCH (03:17)
--- NOTE | 2022-08-02 06:05 | NUR ---
reported to days. noted pt initially refused labs, but changed his mind before lab left the room. labs drawn w/o difficulty. noted pt increased diet to low residue to have test diet.
[2022-08-02 06:16] LABS: BASOPHILS % (AUTO) 0.2 % (0-1); EOSINOPHILS # (AUTO) 0.1 X10'3 (0-0.9); EOSINOPHILS % (AUTO) 1.7 % (0-6); HEMATOCRIT 46.8 % (42.0-52.0); HEMOGLOBIN 16.4 g/dl (14.0-17.9); LYMPHOCYTES # (AUTO) 3.3 X10'3 (1.1-4.8); LYMPHOCYTES % (AUTO) 45.4 % (21-51); MEAN CORPUSCULAR HEMOGLOBIN 31.8 PG (27.0-31.0); MEAN CORPUSCULAR VOLUME 90.8 FL (78-98); MEAN PLATELET VOLUME 8.1 FL (7.4-10.4); MONOCYTES # (AUTO) 0.6 X10'3 (0-0.9); MONOCYTES % (AUTO) 8.5 % (2-12); NEUTROPHILS # (AUTO) 3.2 X10'3 (1.8-7.7); NEUTROPHILS % (AUTO) 44.2 % (42-75); PLATELET COUNT 269 X10'3 (140-440); RED BLOOD COUNT 5.16 X10'6 (4.70-6.10); RED CELL DISTRIBUTION WIDTH 13.3 % (11.5-14.5); WHITE BLOOD COUNT 7.2 X10'3 (4.5-11.0)
[2022-08-02 06:31] LABS: ALANINE AMINOTRANSFERASE 31 U/L (12-78); ALBUMIN 3.6 G/DL (3.4-5.0); ALBUMIN/GLOBULIN RATIO 0.9 (1.1-1.5); ALKALINE PHOSPHATASE 61 IU/L (46-116); ANION GAP 6 (8-16); ASPARTATE AMINO TRANSFERASE 22 U/L (10-37); BILIRUBIN,TOTAL 0.5 MG/DL (0.1-1.0); BLOOD UREA NITROGEN 16 MG/DL (7-18); BUN/CREATININE RATIO 15.8 (5.4-32.0); CALCIUM 9.4 MG/DL (8.5-10.1); CHLORIDE 104 MMOL/L (99-107); CREATININE 1.01 MG/DL (0.60-1.10); GLUCOSE 110 MG/DL (70-104); SODIUM 141 MMOL/L (135-145); TOTAL CARBON DIOXIDE 30.8 MMOL/L (24-32); TOTAL PROTEIN 7.5 G/DL (6.4-8.2); eGFR 76 ML/MIN
[2022-08-02 07:00] VITALS: BP 101/75
[2022-08-02] MEDS ORDERED: CIPR-447 PO (11:19)
[2022-08-02] MEDS ORDERED: METR-159 PO (11:19)
[2022-08-02 11:50] VITALS: BP 118/82
--- NOTE | 2022-08-02 12:29 | NUR ---
patient stable and appropriate for discharge home with family. IV removed. new RX e-scripted to preferred pharmacy. All discharge instructions and education given and reviewed with patient, all questions answered.
== END 2022-08-02 12:16 | disposition home or self-care (01) | DRG 244 ==
LOC: ER 14:28 → ED HOLD 20:06 → SUR 3N 08-01 07:16
PROVIDERS: ADMIT Internal Medicine; ATTEND Family Medicine
DX: K57.32 Diverticulitis of large intestine without perforation or abscess without bleeding (principal); Z86.19 Personal history of other infectious and parasitic diseases; Z87.891 Personal history of nicotine dependence
CPT/HCPCS: 36415; 74176; 80053; 81003; 83605; 83690; 85025; 87040; 87081; 99285; G0378; J2270; J2405; J2543; J7030

== ENCOUNTER 2022-10-19 13:00 | Inpatient (IN) | payer MEDICAID ==
[~2022-10-19] VITALS: Ht 172.7 cm; Wt 136.0 kg
[2022-10-19 14:21] LABS: BASOPHILS % (AUTO) 0.3 % (0-1); EOSINOPHILS # (AUTO) 0.1 X10'3 (0-0.9); HEMATOCRIT 48.3 % (42.0-52.0); HEMOGLOBIN 16.7 g/dl (14.0-17.9); LYMPHOCYTES # (AUTO) 2.3 X10'3 (1.1-4.8); LYMPHOCYTES % (AUTO) 21.4 % (21-51); MEAN CORPUSCULAR HEMOGLOBIN 31.4 PG (27.0-31.0); MEAN CORPUSCULAR HGB CONC 34.5 g/dL (33.0-36.5); MONOCYTES # (AUTO) 0.9 X10'3 (0-0.9); MONOCYTES % (AUTO) 8.2 % (2-12); NEUTROPHILS # (AUTO) 7.6 X10'3 (1.8-7.7); NEUTROPHILS % (AUTO) 69.1 % (42-75); PLATELET COUNT 236 X10'3 (140-440); RED BLOOD COUNT 5.31 X10'6 (4.70-6.10); RED CELL DISTRIBUTION WIDTH 13.9 % (11.5-14.5); WHITE BLOOD COUNT 10.9 X10'3 (4.5-11.0)
[2022-10-19 14:42] LABS: ANION GAP 6 (8-16); BILIRUBIN,TOTAL 0.3 MG/DL (0.1-1.0); BLOOD UREA NITROGEN 16 MG/DL (7-18); BUN/CREATININE RATIO 16.8 (10.0-20.0); CALCIUM 9.4 MG/DL (8.5-10.1); CHLORIDE 105 MMOL/L (99-107); CREATININE 0.95 MG/DL (0.60-1.10); GLUCOSE 108 MG/DL (70-104); POTASSIUM 4.1 MMOL/L (3.5-5.1); SODIUM 138 MMOL/L (135-145); TOTAL CARBON DIOXIDE 27.3 MMOL/L (24-32); eGFR 82 ML/MIN
[2022-10-19 14:43] LABS: ALANINE AMINOTRANSFERASE 42 U/L (12-78); ALBUMIN 4.3 G/DL (3.4-5.0); ALBUMIN/GLOBULIN RATIO 1.3 (1.1-1.5); ALKALINE PHOSPHATASE 51 IU/L (46-116); ASPARTATE AMINO TRANSFERASE 21 U/L (10-37); LIPASE 149 U/L (73-393); TOTAL PROTEIN 7.5 G/DL (6.4-8.2)
[2022-10-19] MEDS ORDERED: normal saline 1000ML IV soln IVB ONE (15:20)
[2022-10-19] MEDS ORDERED: morphine 4 MG/ML inj SYRINge IV ONE (15:20)
[2022-10-19] MEDS ORDERED: ondansetron/PF 4mg/2ml inj IV ONE ×2 (15:20→17:15)
[2022-10-19] MEDS ORDERED: iohexol 300mg/ml 100ml inj. ONE (15:39)
[2022-10-19] MEDS ORDERED: METR-159 PO (17:14)
[2022-10-19] MEDS ORDERED: CIPR500T5 PO (17:14)
[2022-10-19] MEDS ORDERED: ACET-1025 PO (17:14)
[2022-10-19] MEDS ORDERED: HYDROmorphone 1 mg/ml syringe IV ONE (17:15)
[2022-10-19] MEDS ORDERED: acetaminophen 325mg tablet PO PRN ×2 (17:45)
[2022-10-19] MEDS ORDERED: mag hydrox/Alum hydrox/simeth 30ml oral suspension PO PRN (17:45)
[2022-10-19] MEDS ORDERED: magnesium 2GM in 50ml NS 50 ML IV PRN (17:45)
[2022-10-19] MEDS ORDERED: potassium Cl 20 mEq SR tablet PO PRN ×2 (17:45)
[2022-10-19] MEDS ORDERED: morphine 2 MG/ML inj. syringe IV PRN ×2 (17:45)
[2022-10-19] MEDS ORDERED: potassium Cl 40MEQ/1/2NS 520ml 520 ML IV PRN (17:45)
[2022-10-19] MEDS ORDERED: magnesium 4gm in 100ml NS 100 ML IV PRN (17:45)
[2022-10-19 18:25] LABS: COLOR,URINE YELLOW (Yellow); GLUCOSE, URINE NEGATIVE (Neg); KETONES,URINE NEGATIVE (Neg); LEUKOCYTE ESTERASE ,URINE NEGATIVE (Neg); NITRITES, URINE NEGATIVE (Neg); OCCULT BLOOD,URINE NEGATIVE (Neg); PROTEIN,URINE NEGATIVE (Neg); UROBILINOGEN,URINE 0.2 E.U/dL (0.2-1.0)
[2022-10-19 18:36] LABS: UA COLLECTION TYPE CLN CATCH MIDSTREAM
[2022-10-19 18:37] LABS: CLARITY,URINE CLEAR (Clear)
[2022-10-19] MEDS: normal saline 1000ml 1,000 ML IV SCH (19:36)
[2022-10-19] MEDS: HYDROmorphone 1 mg/ml syringe IV PRN ×2 (19:37→22:36)
[2022-10-19] MEDS ORDERED: piperacillin/tazo 3.375gm/50ml 50 ML IV SCH (20:00)
[2022-10-19] MEDS: K and/or MAG REPLACEMENT MC SCH (20:00)
[2022-10-19] MEDS: enoxaparin 40mg/0.4ml syringe SQ SCH (21:15)
[2022-10-19] MEDS: docusate sod 100mg capsule PO SCH (21:15)
[2022-10-19 22:00] VITALS: BP 128/85
[2022-10-19] MEDS: ondansetron/PF 4mg/2ml inj IV PRN (22:35)
[2022-10-20] MEDS: piperacillin/tazo 4.5gm/100ml 100 ML IV SCH ×3 (00:12→16:14)
[2022-10-20] MEDS: HYDROmorphone 1 mg/ml syringe IV PRN ×5 (01:59→20:38)
[2022-10-20 02:00] VITALS: BP 126/78
[2022-10-20 05:39] LABS: BASOPHILS % (AUTO) 0.3 % (0-1); EOSINOPHILS % (AUTO) 0.1 % (0-6); HEMATOCRIT 42.9 % (42.0-52.0); HEMOGLOBIN 14.8 g/dl (14.0-17.9); LYMPHOCYTES % (AUTO) 15.6 % (21-51); MEAN CORPUSCULAR HEMOGLOBIN 31.9 PG (27.0-31.0); MEAN CORPUSCULAR HGB CONC 34.6 g/dL (33.0-36.5); MEAN CORPUSCULAR VOLUME 92.1 FL (78-98); MEAN PLATELET VOLUME 8.9 FL (7.4-10.4); MONOCYTES # (AUTO) 1.3 X10'3 (0-0.9); MONOCYTES % (AUTO) 10.1 % (2-12); NEUTROPHILS # (AUTO) 9.4 X10'3 (1.8-7.7); NEUTROPHILS % (AUTO) 73.9 % (42-75); PLATELET COUNT 213 X10'3 (140-440); RED BLOOD COUNT 4.66 X10'6 (4.70-6.10); WHITE BLOOD COUNT 12.8 X10'3 (4.5-11.0)
[2022-10-20 06:00] VITALS: BP 125/73
[2022-10-20 06:22] LABS: ALANINE AMINOTRANSFERASE 30 U/L (12-78); ALBUMIN 3.7 G/DL (3.4-5.0); ALBUMIN/GLOBULIN RATIO 1.2 (1.1-1.5); ALKALINE PHOSPHATASE 49 IU/L (46-116); ANION GAP 9 (8-16); ASPARTATE AMINO TRANSFERASE 15 U/L (10-37); BILIRUBIN,TOTAL 0.8 MG/DL (0.1-1.0); BLOOD UREA NITROGEN 14 MG/DL (7-18); BUN/CREATININE RATIO 14.6 (10.0-20.0); CALCIUM 8.6 MG/DL (8.5-10.1); CHLORIDE 103 MMOL/L (99-107); CREATININE 0.96 MG/DL (0.60-1.10); GLUCOSE 131 MG/DL (70-104); MAGNESIUM 1.9 MG/DL (1.5-2.4); SODIUM 138 MMOL/L (135-145); TOTAL CARBON DIOXIDE 26.4 MMOL/L (24-32); TOTAL PROTEIN 6.7 G/DL (6.4-8.2); eGFR 81 ML/MIN
--- NOTE | 2022-10-20 06:48 | NUR ---
Patient in room ORTHO 4023. I have received report from SHIRA Guzman and had the opportunity to ask questions and assume patient care.
[2022-10-20] MEDS: ondansetron/PF 4mg/2ml inj IV PRN ×2 (07:54→16:26)
[2022-10-20] MEDS: docusate sod 100mg capsule PO SCH ×2 (08:00→20:00)
[2022-10-20] MEDS: normal saline 1000ml 1,000 ML IV SCH ×2 (08:06→20:20)
[2022-10-20] MEDS: K and/or MAG REPLACEMENT MC SCH ×2 (08:39→19:39)
[2022-10-20 10:00] VITALS: BP 114/72
--- NOTE | 2022-10-20 15:17 | NUR ---
SENIOR PROJECT LEADER/TEAM LEAD documentation: I have reviewed and agree with all interventions, assessments performed and documented by Loni Dewitt LVN.
[2022-10-20 18:00] VITALS: BP 149/87
--- NOTE | 2022-10-20 18:38 | NUR ---
Problems reprioritized. Patient report given, questions answered & plan of care reviewed with SHIRA Ozuna.
--- NOTE | 2022-10-20 18:41 | NUR ---
Patient in room ORTHO 4023. I have received report from marisol STANLEY and had the opportunity to ask questions and assume patient care.
[2022-10-20] MEDS: enoxaparin 40mg/0.4ml syringe SQ SCH (20:21)
[2022-10-20 22:21] VITALS: BP 102/64
--- NOTE | 2022-10-20 23:46 | NUR ---
reviewed and edited SVN assessment per my findings.
[2022-10-21] MEDS: piperacillin/tazo 4.5gm/100ml 100 ML IV SCH ×3 (00:02→15:47)
[2022-10-21] MEDS: ondansetron/PF 4mg/2ml inj IV PRN ×2 (00:06→07:55)
[2022-10-21] MEDS: HYDROmorphone 1 mg/ml syringe IV PRN ×4 (00:06→10:23)
[2022-10-21 06:00] VITALS: BP 94/62
--- NOTE | 2022-10-21 06:28 | NUR ---
Problems reprioritized. Patient report given to Maria Isabel SILVA, questions answered & plan of care reviewed with .
[2022-10-21 06:29] LABS: BASOPHILS % (AUTO) 0.1 % (0-1); EOSINOPHILS # (AUTO) 0.1 X10'3 (0-0.9); EOSINOPHILS % (AUTO) 0.7 % (0-6); HEMATOCRIT 41.4 % (42.0-52.0); HEMOGLOBIN 14.3 g/dl (14.0-17.9); LYMPHOCYTES # (AUTO) 2.3 X10'3 (1.1-4.8); LYMPHOCYTES % (AUTO) 22.7 % (21-51); MEAN CORPUSCULAR HEMOGLOBIN 31.7 PG (27.0-31.0); MEAN CORPUSCULAR HGB CONC 34.5 g/dL (33.0-36.5); MEAN CORPUSCULAR VOLUME 92.1 FL (78-98); MEAN PLATELET VOLUME 8.9 FL (7.4-10.4); MONOCYTES # (AUTO) 1.1 X10'3 (0-0.9); MONOCYTES % (AUTO) 10.5 % (2-12); NEUTROPHILS # (AUTO) 6.8 X10'3 (1.8-7.7); PLATELET COUNT 197 X10'3 (140-440); RED BLOOD COUNT 4.49 X10'6 (4.70-6.10); WHITE BLOOD COUNT 10.4 X10'3 (4.5-11.0)
--- NOTE | 2022-10-21 06:33 | NUR ---
Patient in room ORTHO 4023. I have received report from vilma STANLEY and had the opportunity to ask questions and assume patient care.
[2022-10-21 06:40] LABS: ALANINE AMINOTRANSFERASE 22 U/L (12-78); ALBUMIN 3.2 G/DL (3.4-5.0); ALKALINE PHOSPHATASE 46 IU/L (46-116); ANION GAP 7 (8-16); ASPARTATE AMINO TRANSFERASE 14 U/L (10-37); BILIRUBIN,TOTAL 0.8 MG/DL (0.1-1.0); BLOOD UREA NITROGEN 14 MG/DL (7-18); BUN/CREATININE RATIO 14.1 (10.0-20.0); CALCIUM 8.8 MG/DL (8.5-10.1); CHLORIDE 103 MMOL/L (99-107); CREATININE 0.99 MG/DL (0.60-1.10); GLUCOSE 107 MG/DL (70-104); POTASSIUM 3.6 MMOL/L (3.5-5.1); SODIUM 138 MMOL/L (135-145); TOTAL CARBON DIOXIDE 28.3 MMOL/L (24-32); TOTAL PROTEIN 6.4 G/DL (6.4-8.2); eGFR 78 ML/MIN
[2022-10-21] MEDS: docusate sod 100mg capsule PO SCH ×2 (07:33→19:19)
[2022-10-21] MEDS: normal saline 1000ml 1,000 ML IV SCH ×2 (07:50→19:15)
[2022-10-21] MEDS: K and/or MAG REPLACEMENT MC SCH ×2 (08:00→19:09)
[2022-10-21] MEDS ORDERED: HYDROmorphone inj. 0.5 MG/0.5 ML DISP.SYRIN IV PRN (09:25)
[2022-10-21] MEDS ORDERED: oxyCODONE/APAP 10/325mg tablet PO PRN (09:28)
[2022-10-21 10:00] VITALS: BP 112/68
[2022-10-21 18:00] VITALS: BP 140/79
--- NOTE | 2022-10-21 18:13 | NUR ---
patient had pain relief x2 with good result see emar. Not requiring pain meds this afternoon. Tolerating clear liquid diet. Ambulating in hallway. All cares given. report given to leonardo SILVA/Ina STANLEY
--- NOTE | 2022-10-21 18:34 | NUR ---
Patient in room ORTHO 4023. I have received report from Maria Isabel SILVA and had the opportunity to ask questions and assume patient care.
[2022-10-21] MEDS: enoxaparin 40mg/0.4ml syringe SQ SCH (19:15)
[2022-10-21] MEDS: acetaminophen 325mg tablet PO PRN (20:51)
[2022-10-21 22:00] VITALS: BP 126/72
[2022-10-22] MEDS: piperacillin/tazo 4.5gm/100ml 100 ML IV SCH ×2 (00:13→07:25)
[2022-10-22] MEDS: normal saline 1000ml 1,000 ML IV SCH (05:40)
[2022-10-22 06:00] VITALS: BP 92/53
[2022-10-22 06:09] LABS: BASOPHILS % (AUTO) 0.2 % (0-1); EOSINOPHILS # (AUTO) 0.1 X10'3 (0-0.9); EOSINOPHILS % (AUTO) 1.6 % (0-6); HEMATOCRIT 39.7 % (42.0-52.0); HEMOGLOBIN 13.4 g/dl (14.0-17.9); LYMPHOCYTES # (AUTO) 2.9 X10'3 (1.1-4.8); LYMPHOCYTES % (AUTO) 37.7 % (21-51); MEAN CORPUSCULAR HEMOGLOBIN 30.7 PG (27.0-31.0); MEAN CORPUSCULAR HGB CONC 33.6 g/dL (33.0-36.5); MEAN CORPUSCULAR VOLUME 91.3 FL (78-98); MEAN PLATELET VOLUME 8.9 FL (7.4-10.4); MONOCYTES # (AUTO) 0.7 X10'3 (0-0.9); MONOCYTES % (AUTO) 8.9 % (2-12); NEUTROPHILS # (AUTO) 3.9 X10'3 (1.8-7.7); NEUTROPHILS % (AUTO) 51.6 % (42-75); PLATELET COUNT 203 X10'3 (140-440); RED BLOOD COUNT 4.35 X10'6 (4.70-6.10); RED CELL DISTRIBUTION WIDTH 13.7 % (11.5-14.5); WHITE BLOOD COUNT 7.6 X10'3 (4.5-11.0)
--- NOTE | 2022-10-22 06:24 | NUR ---
Problems reprioritized. Patient report given to Maria Isabel SILVA, questions answered & plan of care reviewed with .
[2022-10-22 06:44] LABS: ALANINE AMINOTRANSFERASE 21 U/L (12-78); ALBUMIN 2.9 G/DL (3.4-5.0); ALBUMIN/GLOBULIN RATIO 0.9 (1.1-1.5); ALKALINE PHOSPHATASE 42 IU/L (46-116); ANION GAP 5 (8-16); ASPARTATE AMINO TRANSFERASE 15 U/L (10-37); BILIRUBIN,TOTAL 0.5 MG/DL (0.1-1.0); BLOOD UREA NITROGEN 9 MG/DL (7-18); BUN/CREATININE RATIO 9.5 (10.0-20.0); CALCIUM 8.7 MG/DL (8.5-10.1); CHLORIDE 105 MMOL/L (99-107); CREATININE 0.95 MG/DL (0.60-1.10); GLUCOSE 99 MG/DL (70-104); POTASSIUM 3.4 MMOL/L (3.5-5.1); SODIUM 141 MMOL/L (135-145); TOTAL CARBON DIOXIDE 31.3 MMOL/L (24-32); eGFR 82 ML/MIN
--- NOTE | 2022-10-22 06:44 | NUR ---
Patient in room ORTHO 4023. I have received report from vilma STANLEY and had the opportunity to ask questions and assume patient care.
[2022-10-22] MEDS: acetaminophen 325mg tablet PO PRN (07:25)
[2022-10-22] MEDS: K and/or MAG REPLACEMENT MC SCH (08:00)
[2022-10-22] MEDS: docusate sod 100mg capsule PO SCH (08:00)
[2022-10-22] MEDS ORDERED: amox tr/potassium clavulanate 875/125mg TAB PO ONE (09:35)
[2022-10-22] MEDS ORDERED: ONDA4TAB12 PO (11:06)
[2022-10-22] MEDS ORDERED: AMOX-580 PO (11:06)
[2022-10-22] MEDS ORDERED: OXYC1TAB17 PO (11:06)
--- NOTE | 2022-10-22 12:44 | NUR ---
patient up and about states pain i abdomen is below 5 and he doesnt want any pain relief. BM x1 this am. tolerated soft diet. Seen by Dr Elam , is for discharge. All DC instructions given to patient . patient Dc home via private car with in stable condition.
[2022-10-22] MEDS ORDERED: POTA-207 PO (14:58)
== END 2022-10-22 12:40 | disposition home or self-care (01) | DRG 244 ==
LOC: ER 13:00 → ED HOLD 17:54 → ORTHO 4S 19:06
PROVIDERS: ADMIT Family Medicine; ATTEND Family Medicine
PROC: B4201ZZ Computerized Tomography (CT Scan) of Abdominal Aorta using Low Osmolar Contrast (ICD-10-PCS; principal; 2022-10-19)
PROC: B4241ZZ Computerized Tomography (CT Scan) of Superior Mesenteric Artery using Low Osmolar Contrast (ICD-10-PCS; 2022-10-19)
PROC: B4281ZZ Computerized Tomography (CT Scan) of Bilateral Renal Arteries using Low Osmolar Contrast (ICD-10-PCS; 2022-10-19)
PROC: B42C1ZZ Computerized Tomography (CT Scan) of Pelvic Arteries using Low Osmolar Contrast (ICD-10-PCS; 2022-10-19)
PROC: B42H1ZZ Computerized Tomography (CT Scan) of Bilateral Lower Extremity Arteries using Low Osmolar Contrast (ICD-10-PCS; 2022-10-19)
PROC: B4211ZZ Computerized Tomography (CT Scan) of Celiac Artery using Low Osmolar Contrast (ICD-10-PCS; 2022-10-19)
DX: K57.32 Diverticulitis of large intestine without perforation or abscess without bleeding (principal); E87.6 Hypokalemia; G40.909 Epilepsy, unspecified, not intractable, without status epilepticus; F10.10 Alcohol abuse, uncomplicated; Z80.0 Family history of malignant neoplasm of digestive organs; Z87.891 Personal history of nicotine dependence; Z56.0 Unemployment, unspecified
CPT/HCPCS: 36415; 74177; 80053; 81003; 83605; 83690; 83735; 85025; 87040; 87081; 99285; A4615; G0378; J1170; J1650; J2270; J2405; J2543; J3490; J7030; Q9967

== ENCOUNTER 2022-11-06 10:13 | Inpatient (IN) | payer MEDICAID ==
[2022-10-30 15:06] LABS: BASOPHILS % (AUTO) 0.3 % (0-1); EOSINOPHILS # (AUTO) 0.1 X10'3 (0-0.9); EOSINOPHILS % (AUTO) 1.1 % (0-6); LYMPHOCYTES # (AUTO) 3.3 X10'3 (1.1-4.8); LYMPHOCYTES % (AUTO) 33.7 % (21-51); MEAN CORPUSCULAR HEMOGLOBIN 30.9 PG (27.0-31.0); MEAN CORPUSCULAR HGB CONC 33.9 g/dL (33.0-36.5); MEAN PLATELET VOLUME 8.4 FL (7.4-10.4); MONOCYTES # (AUTO) 0.8 X10'3 (0-0.9); MONOCYTES % (AUTO) 8.2 % (2-12); NEUTROPHILS # (AUTO) 5.6 X10'3 (1.8-7.7); NEUTROPHILS % (AUTO) 56.7 % (42-75); PRE OP HEMATOCRIT 49.8 % (42.0-52.0); PRE OP HEMOGLOBIN 16.9 g/dL (14.0-17.9); PRE OP PLATELET COUNT 358 X10'3 (140-440); RED BLOOD COUNT 5.47 X10'6 (4.70-6.10); RED CELL DISTRIBUTION WIDTH 13.6 % (11.5-14.5)
[2022-10-30 15:24] LABS: ALBUMIN 3.8 G/DL (3.4-5.0); ALKALINE PHOSPHATASE 63 IU/L (46-116); BLOOD UREA NITROGEN 16 MG/DL (7-18); BUN/CREATININE RATIO 14.8 (10.0-20.0); CALCIUM 9.5 MG/DL (8.5-10.1); CHLORIDE 105 MMOL/L (99-107); CREATININE 1.08 MG/DL (0.60-1.10); PRE OP ALT 30 U/L (30-65); PRE OP ANION GAP 9 (8-16); PRE OP AST 20 U/L (10-37); PRE OP BILIRUB, TOTAL 0.4 MG/DL (0.0-1.0); PRE OP GLUCOSE 155 MG/DL (70-104); PRE OP POTASSIUM 3.7 MMOL/L (3.4-5.1); PRE OP SODIUM 141 MMOL/L (135-145); TOTAL CARBON DIOXIDE 26.6 MMOL/L (24-32); TOTAL PROTEIN 7.7 G/DL (6.4-8.2); eGFR 70 ML/MIN
[~2022-11-06] VITALS: Ht 175.3 cm; Wt 132.2 kg
[2022-11-06] VITALS (22 sets, daily range): BP systolic 97–139; BP diastolic 62–92
[~2022-11-06 10:13] MED LIST changes: -AMOX-117 PO; +AMOX-580 PO; -CYCL-1 PO; -DIAZ5TAB PO; -HYDR-4383 PO; -IBUP-1986 PO; +LACT1CAP65 PO; -NO HOME MEDS; -ONDA4TAB6 PO; +POTA-207 PO; +ceFOXitin 2GM-NS 100mL ADDvant 100 ML IV ONE; +famotidine 20mg tablet PO ONE; +ringers solution, lacted 1,000 ML IV SCH
[2022-11-06] MEDS ORDERED: BUPIVAcaine/PF 2.5 mg/ml (0.25%) 30ml vial ONE (11:25)
[2022-11-06] MEDS ORDERED: LIDOcaine 1% 30ml preserv. free vial ONE (11:25)
[2022-11-06] MEDS ORDERED: morphine 2 MG/ML inj. syringe IV PRN (11:55)
[2022-11-06] MEDS ORDERED: ondansetron/PF 4mg/2ml inj IV PRN ×2 (11:55→16:10)
[2022-11-06] MEDS ORDERED: proCHLORperazine 10 MG/2 ml inj IV PRN (11:55)
[2022-11-06] MEDS ORDERED: desflurane 240ml liquid inh. IH ONE (11:55)
[2022-11-06] MEDS ORDERED: ondansetron/PF 4mg/2ml inj ONE (11:55)
[2022-11-06] MEDS ORDERED: morphine 4 MG/ML inj SYRINge IV PRN (11:55)
[2022-11-06] MEDS ORDERED: meperidine/PF 25mg/ml syringe IV PRN ×3 (11:55)
[2022-11-06] MEDS ORDERED: sevoflurane 250ml liquid IH ONE (11:55)
[2022-11-06] MEDS ORDERED: ringers solution, lacted 1,000 ML IV SCH (11:55)
[2022-11-06] MEDS ORDERED: midazolam 1 mg/ML 2ml injection ONE (12:02)
[2022-11-06] MEDS ORDERED: fentaNYL /PF 50mcg/ml 5ml ampule ONE ×2 (12:02→14:15)
[2022-11-06] MEDS ORDERED: propofol inj 20 ML IV ONE (12:04)
[2022-11-06] MEDS ORDERED: rocuronium 10mg/ml inj IV ONE ×3 (12:04→15:23)
[2022-11-06] MEDS ORDERED: INDOCYANINE GREEN 25 MG/10 ML VIAL IV ONE (14:06)
[2022-11-06] MEDS ORDERED: dexamethasone sod phosphate 4mg/ml inj. ONE (14:09)
[2022-11-06] MEDS ORDERED: acetaminophen 1,000mg/100ml IV 100 ML IV ONE (14:36)
[2022-11-06] MEDS ORDERED: albumin (Human) 5% 250ml 250 ML IV ONE (14:55)
[2022-11-06] MEDS ORDERED: sugammadex 200mg/2ml injection IV ONE (14:58)
[2022-11-06] MEDS ORDERED: naloxone 0.4 mg/ml inj ONE (16:07)
[2022-11-06] MEDS ORDERED: HYDROcodone/acetaminophen 5mg/325mg tablet PO PRN (16:10)
[2022-11-06] MEDS ORDERED: naloxone 0.4 mg/ml inj IV PRN (16:10)
--- NOTE | 2022-11-06 16:25 | NUR ---
Received from OR via HOSPITAL BED, accompanied by Anesthesiologist DR MCGUIRE and report given by Anesthesiologist. PT IS GROGGY BUT EASILY RESPONDS TO VERBAL STIMULI. PT PLACED ON BEDSIDE MONITOR, VSS. PT IS RECEIVING 8L O2 TO MASK AND TOLERATING WELL WITH 02 SAT >95%, WILL TITRATE DOWN AT PT TOLERATES. PT IS IN SR WITH RATE IN 80'S. PT HAS 20G PIV TO RT WRIST WITH LR INFUSING ORDERED. PT HAS BAND-AID X4 TO ABD AND SMALL ISLAND DRSG TO LOWER MID ABD THAT ARE ALL CDI. PT DENIES PAIN AT THIS TIME. WILL CONTINUE TO ASSESS
[2022-11-06] MEDS: ketorolac trometh. 30mg/ml inj. IV SCH ×2 (17:02→23:49)
--- NOTE | 2022-11-06 18:35 | NUR ---
Patient in room ORTHO 4020. I have received report from SHIRA Mcnulty and had the opportunity to ask questions and assume patient care.
--- NOTE | 2022-11-06 18:40 | NUR ---
pt arrived in hospital bed. settled into room. call light in reach.
--- NOTE | 2022-11-06 18:44 | NUR ---
PATIENT HAS MET ALL CRITERIA FOR TRANSFER TO THE ORTHO FLOOR. VSS. DRESSINGS INTACT. BED LOW, CALL LIGHT PRESENT AND 2 RAILS UP. DENIS RN PRESENT TO ACCEPT CARE OF PATIENT AND REPORT HAS BEEN CALLED. ALL QUESTIONS ANSWERED TO ACCEPTING RN.
[2022-11-06] MEDS: ringers solution, lacted 1,000 ML IV SCH ×2 (18:50→23:45)
[2022-11-06] MEDS: acetaminophen 325mg tablet PO SCH (20:00)
[2022-11-06] MEDS: HYDROcodone/acetaminophen 10/325mg tab PO PRN (20:31)
[2022-11-06] MEDS: enoxaparin 40mg/0.4ml syringe SUBCUT SCH (20:31)
[2022-11-06] MEDS: ceFOXitin inj 1,000 MG in normal saline 100ml IV soln 100 ML IV SCH (23:45)
[2022-11-07] MEDS: acetaminophen 325mg tablet PO SCH ×4 (02:00→20:00)
[2022-11-07 02:01] VITALS: BP 97/62
[2022-11-07] MEDS: HYDROcodone/acetaminophen 10/325mg tab PO PRN ×4 (03:59→20:40)
[2022-11-07 05:52] VITALS: BP 104/73
[2022-11-07 06:00] VITALS: BP 104/73
[2022-11-07 06:02] LABS: BASOPHILS % (AUTO) 0.1 % (0-1); EOSINOPHILS % (AUTO) 0 % (0-6); HEMOGLOBIN 14.2 g/dl (14.0-17.9); LYMPHOCYTES # (AUTO) 1.4 X10'3 (1.1-4.8); LYMPHOCYTES % (AUTO) 11.1 % (21-51); MEAN CORPUSCULAR HEMOGLOBIN 30.3 PG (27.0-31.0); MEAN CORPUSCULAR HGB CONC 33.8 g/dL (33.0-36.5); MEAN CORPUSCULAR VOLUME 89.7 FL (78-98); MEAN PLATELET VOLUME 7.9 FL (7.4-10.4); MONOCYTES # (AUTO) 0.7 X10'3 (0-0.9); MONOCYTES % (AUTO) 5.9 % (2-12); NEUTROPHILS # (AUTO) 10.2 X10'3 (1.8-7.7); NEUTROPHILS % (AUTO) 82.9 % (42-75); PLATELET COUNT 306 X10'3 (140-440); RED BLOOD COUNT 4.68 X10'6 (4.70-6.10); RED CELL DISTRIBUTION WIDTH 13.5 % (11.5-14.5); WHITE BLOOD COUNT 12.3 X10'3 (4.5-11.0)
[2022-11-07 06:09] LABS: ALBUMIN 3.4 G/DL (3.4-5.0); ANION GAP 7 (8-16); BLOOD UREA NITROGEN 16 MG/DL (7-18); CALCIUM 8.7 MG/DL (8.5-10.1); CHLORIDE 104 MMOL/L (99-107); GLUCOSE 124 MG/DL (70-104); POTASSIUM 3.8 MMOL/L (3.5-5.1); SODIUM 138 MMOL/L (135-145); TOTAL CARBON DIOXIDE 26.6 MMOL/L (24-32); eGFR 77 ML/MIN
--- NOTE | 2022-11-07 06:30 | NUR ---
Patient in room ORTHO 4020. I have received report from SHIRA Eckert and had the opportunity to ask questions and assume patient care.
[2022-11-07] MEDS: ringers solution, lacted 1,000 ML IV SCH ×3 (06:32→20:36)
--- NOTE | 2022-11-07 06:32 | NUR ---
Problems reprioritized. Patient report given, questions answered & plan of care reviewed with JADEN Lal.
[2022-11-07] MEDS: ketorolac trometh. 30mg/ml inj. IV SCH ×2 (08:57→17:02)
[2022-11-07] MEDS: ceFOXitin inj 1,000 MG in normal saline 100ml IV soln 100 ML IV SCH (08:59)
[2022-11-07 10:00] VITALS: BP 105/68
--- NOTE | 2022-11-07 17:00 | NUR ---
I have reviewed and agree with interventions, assessments, and documentation by Lukasz Song LVN.
[2022-11-07 18:00] VITALS: BP 104/72
--- NOTE | 2022-11-07 18:00 | NUR ---
Patient in room ORTHO 4020. I have received report from SHIRA Lal and had the opportunity to ask questions and assume patient care.
--- NOTE | 2022-11-07 18:17 | NUR ---
Problems reprioritized. Patient report given, questions answered & plan of care reviewed with SHIRA Mtz.
[2022-11-07] MEDS: enoxaparin 40mg/0.4ml syringe SUBCUT SCH (20:36)
[2022-11-07 22:00] VITALS: BP 118/65
[2022-11-08] MEDS: ketorolac trometh. 30mg/ml inj. IV SCH ×2 (00:07→08:12)
[2022-11-08] MEDS: ringers solution, lacted 1,000 ML IV SCH ×2 (00:08→09:18)
[2022-11-08] MEDS: acetaminophen 325mg tablet PO SCH ×3 (01:17→13:54)
[2022-11-08 06:00] VITALS: BP 119/84
[2022-11-08 06:27] LABS: ALBUMIN 3.1 G/DL (3.4-5.0); ANION GAP 8 (8-16); BASOPHILS % (AUTO) 0.3 % (0-1); BLOOD UREA NITROGEN 16 MG/DL (7-18); BUN/CREATININE RATIO 17.2 (10.0-20.0); CALCIUM 8.8 MG/DL (8.5-10.1); CHLORIDE 104 MMOL/L (99-107); CREATININE 0.93 MG/DL (0.60-1.10); EOSINOPHILS # (AUTO) 0.1 X10'3 (0-0.9); EOSINOPHILS % (AUTO) 0.7 % (0-6); GLUCOSE 94 MG/DL (70-104); HEMATOCRIT 39.1 % (42.0-52.0); HEMOGLOBIN 13.2 g/dl (14.0-17.9); LYMPHOCYTES # (AUTO) 4.1 X10'3 (1.1-4.8); LYMPHOCYTES % (AUTO) 36.7 % (21-51); MEAN CORPUSCULAR HEMOGLOBIN 30.5 PG (27.0-31.0); MEAN CORPUSCULAR HGB CONC 33.7 g/dL (33.0-36.5); MEAN CORPUSCULAR VOLUME 90.5 FL (78-98); MONOCYTES # (AUTO) 0.8 X10'3 (0-0.9); MONOCYTES % (AUTO) 7.1 % (2-12); NEUTROPHILS # (AUTO) 6.1 X10'3 (1.8-7.7); NEUTROPHILS % (AUTO) 55.2 % (42-75); PLATELET COUNT 249 X10'3 (140-440); POTASSIUM 3.9 MMOL/L (3.5-5.1); RED BLOOD COUNT 4.32 X10'6 (4.70-6.10); RED CELL DISTRIBUTION WIDTH 13.6 % (11.5-14.5); SODIUM 141 MMOL/L (135-145); WHITE BLOOD COUNT 11.1 X10'3 (4.5-11.0); eGFR 84 ML/MIN
--- NOTE | 2022-11-08 06:31 | NUR ---
Problems reprioritized. Patient report given, questions answered & plan of care reviewed with SHIRA Solitario.
[2022-11-08] MEDS: HYDROcodone/acetaminophen 10/325mg tab PO PRN ×2 (06:44→10:52)
--- NOTE | 2022-11-08 06:49 | NUR ---
Patient in room ORTHO 4020. I have received report from SHIRA Mtz and had the opportunity to ask questions and assume patient care.
[2022-11-08 10:00] VITALS: BP 125/83
[2022-11-08] MEDS ORDERED: oxyCODONE/APAP 5-325mg tablet PO PRN (16:05)
[2022-11-08] MEDS: oxyCODONE/APAP 5-325mg tablet PO PRN ×2 (16:18→21:03)
--- NOTE | 2022-11-08 16:57 | NUR ---
FRENCH TEACHER documentation: I have reviewed and agree with all interventions, assessments performed and documented by Kassi Craven LVN.
[2022-11-08 18:00] VITALS: BP 141/81
--- NOTE | 2022-11-08 18:18 | NUR ---
Problems reprioritized. Patient report given, questions answered & plan of care reviewed with SHIRA Durant.
[2022-11-08 21:00] VITALS: BP 136/86
[2022-11-08] MEDS: enoxaparin 40mg/0.4ml syringe SUBCUT SCH (21:03)
[2022-11-09] MEDS: oxyCODONE/APAP 5-325mg tablet PO PRN ×5 (01:00→21:20)
[2022-11-09 06:00] VITALS: BP 142/86
--- NOTE | 2022-11-09 06:50 | NUR ---
reported to days. noted pt resting after his 6 laps around the unit. incisions intact.
[2022-11-09 09:54] LABS: BASOPHILS % (AUTO) 0.2 % (0-1); EOSINOPHILS # (AUTO) 0.1 X10'3 (0-0.9); EOSINOPHILS % (AUTO) 0.7 % (0-6); HEMATOCRIT 41.6 % (42.0-52.0); HEMOGLOBIN 13.9 g/dl (14.0-17.9); LYMPHOCYTES # (AUTO) 2.3 X10'3 (1.1-4.8); LYMPHOCYTES % (AUTO) 19.7 % (21-51); MEAN CORPUSCULAR HEMOGLOBIN 30.1 PG (27.0-31.0); MEAN CORPUSCULAR HGB CONC 33.4 g/dL (33.0-36.5); MEAN PLATELET VOLUME 7.9 FL (7.4-10.4); MONOCYTES # (AUTO) 1.1 X10'3 (0-0.9); NEUTROPHILS # (AUTO) 8.4 X10'3 (1.8-7.7); NEUTROPHILS % (AUTO) 70.4 % (42-75); PLATELET COUNT 237 X10'3 (140-440); RED BLOOD COUNT 4.62 X10'6 (4.70-6.10); RED CELL DISTRIBUTION WIDTH 13.7 % (11.5-14.5); WHITE BLOOD COUNT 11.9 X10'3 (4.5-11.0)
[2022-11-09 09:58] LABS: ALBUMIN 3.2 G/DL (3.4-5.0); ANION GAP 8 (8-16); BLOOD UREA NITROGEN 13 MG/DL (7-18); BUN/CREATININE RATIO 12.9 (10.0-20.0); CALCIUM 8.7 MG/DL (8.5-10.1); CHLORIDE 100 MMOL/L (99-107); CREATININE 1.01 MG/DL (0.60-1.10); GLUCOSE 122 MG/DL (70-104); POTASSIUM 3.6 MMOL/L (3.5-5.1); SODIUM 138 MMOL/L (135-145); eGFR 76 ML/MIN
[2022-11-09 10:00] VITALS: BP 116/73
[2022-11-09] MEDS ORDERED: magnesium hydroxide 30ml (MOM) UD suspension PO ONE (13:45)
[2022-11-09 18:00] VITALS: BP 119/90
--- NOTE | 2022-11-09 18:15 | NUR ---
pt ambulated 9 times around entire nurses unit
--- NOTE | 2022-11-09 19:49 | NUR ---
Patient in room ORTHO 4020. I have received report from BELINDA SILVA and had the opportunity to ask questions and assume patient care.
[2022-11-09] MEDS: enoxaparin 40mg/0.4ml syringe SUBCUT SCH (19:53)
[2022-11-09 22:00] VITALS: BP 118/71
[2022-11-10] MEDS: oxyCODONE/APAP 5-325mg tablet PO PRN ×2 (02:12→19:17)
[2022-11-10 06:00] VITALS: BP 132/89
--- NOTE | 2022-11-10 06:04 | NUR ---
Problems reprioritized. Patient report given, questions answered & plan of care reviewed with BELINDA SILVA.
[2022-11-10 06:46] LABS: BASOPHILS % (AUTO) 0.2 % (0-1); EOSINOPHILS # (AUTO) 0.1 X10'3 (0-0.9); HEMATOCRIT 42.7 % (42.0-52.0); HEMOGLOBIN 14.5 g/dl (14.0-17.9); LYMPHOCYTES # (AUTO) 2.6 X10'3 (1.1-4.8); LYMPHOCYTES % (AUTO) 21.7 % (21-51); MEAN CORPUSCULAR HEMOGLOBIN 30.5 PG (27.0-31.0); MEAN CORPUSCULAR HGB CONC 33.9 g/dL (33.0-36.5); MEAN PLATELET VOLUME 8.2 FL (7.4-10.4); MONOCYTES % (AUTO) 8.6 % (2-12); NEUTROPHILS # (AUTO) 8.2 X10'3 (1.8-7.7); NEUTROPHILS % (AUTO) 68.5 % (42-75); PLATELET COUNT 243 X10'3 (140-440); RED BLOOD COUNT 4.75 X10'6 (4.70-6.10); RED CELL DISTRIBUTION WIDTH 13.6 % (11.5-14.5)
[2022-11-10 06:53] LABS: ALBUMIN 3.3 G/DL (3.4-5.0); ANION GAP 8 (8-16); BLOOD UREA NITROGEN 15 MG/DL (7-18); BUN/CREATININE RATIO 16.1 (10.0-20.0); CALCIUM 9.1 MG/DL (8.5-10.1); CHLORIDE 101 MMOL/L (99-107); CREATININE 0.93 MG/DL (0.60-1.10); GLUCOSE 105 MG/DL (70-104); POTASSIUM 3.6 MMOL/L (3.5-5.1); SODIUM 136 MMOL/L (135-145); TOTAL CARBON DIOXIDE 26.6 MMOL/L (24-32); eGFR 84 ML/MIN
[2022-11-10] MEDS: acetaminophen 325mg tablet PO PRN ×2 (08:33→15:09)
[2022-11-10 10:00] VITALS: BP 119/83
[2022-11-10 18:00] VITALS: BP 119/75
--- NOTE | 2022-11-10 18:49 | NUR ---
Patient in room ORTHO 4020. I have received report from BELINDA SILVA and had the opportunity to ask questions and assume patient care.
[2022-11-10] MEDS: enoxaparin 40mg/0.4ml syringe SUBCUT SCH (19:19)
[2022-11-10 22:00] VITALS: BP 123/83
[2022-11-11] MEDS: oxyCODONE/APAP 5-325mg tablet PO PRN ×4 (02:23→19:53)
[2022-11-11 06:00] VITALS: BP 100/64
--- NOTE | 2022-11-11 06:37 | NUR ---
Patient in room ORTHO 4020. I have received report from SHIRA Vivar and had the opportunity to ask questions and assume patient care.
--- NOTE | 2022-11-11 06:37 | NUR ---
Problems reprioritized. Patient report given, questions answered & plan of care reviewed with CHUY STANLEY.
[2022-11-11 07:14] LABS: ALBUMIN 3.3 G/DL (3.4-5.0); ANION GAP 8 (8-16); BLOOD UREA NITROGEN 17 MG/DL (7-18); BUN/CREATININE RATIO 18.1 (10.0-20.0); CALCIUM 9.6 MG/DL (8.5-10.1); CHLORIDE 102 MMOL/L (99-107); CREATININE 0.94 MG/DL (0.60-1.10); GLUCOSE 101 MG/DL (70-104); POTASSIUM 4.3 MMOL/L (3.5-5.1); SODIUM 139 MMOL/L (135-145); TOTAL CARBON DIOXIDE 28.7 MMOL/L (24-32); eGFR 83 ML/MIN
[2022-11-11 07:27] LABS: BASOPHILS % (AUTO) 0.2 % (0-1); EOSINOPHILS # (AUTO) 0.2 X10'3 (0-0.9); EOSINOPHILS % (AUTO) 1.2 % (0-6); HEMATOCRIT 44.3 % (42.0-52.0); HEMOGLOBIN 14.8 g/dl (14.0-17.9); LYMPHOCYTES # (AUTO) 3.3 X10'3 (1.1-4.8); LYMPHOCYTES % (AUTO) 24.9 % (21-51); MEAN CORPUSCULAR HEMOGLOBIN 30.3 PG (27.0-31.0); MEAN CORPUSCULAR HGB CONC 33.4 g/dL (33.0-36.5); MEAN CORPUSCULAR VOLUME 90.6 FL (78-98); MEAN PLATELET VOLUME 8.3 FL (7.4-10.4); MONOCYTES # (AUTO) 1.1 X10'3 (0-0.9); MONOCYTES % (AUTO) 8.3 % (2-12); NEUTROPHILS # (AUTO) 8.6 X10'3 (1.8-7.7); NEUTROPHILS % (AUTO) 65.4 % (42-75); PLATELET COUNT 278 X10'3 (140-440); RED BLOOD COUNT 4.88 X10'6 (4.70-6.10); RED CELL DISTRIBUTION WIDTH 13.5 % (11.5-14.5); WHITE BLOOD COUNT 13.2 X10'3 (4.5-11.0)
[2022-11-11 10:00] VITALS: BP 122/79
--- NOTE | 2022-11-11 10:33 | NUR ---
Initial: Pt admit DX recurrent diverticulitis post-op day 5 s/p laparoscopic sigmoid colectomy per EMR. Pt advanced to regular diet 11/08 WS from initial liquids PO 100% avg meals current intake meeting estimated needs. LBM 11/11 per EMR. No nutrition interventions at this time. Will continue to follow. Rec: 1. continue regular diet; consider low-fiber diet per surgeon discretion post-op 2. bowel care per MD post-op 3. weekly wt Addendum: 11/11/22 at [address] Amended: Links added.
[2022-11-11] MEDS: piperacillin/tazo 3.375gm/50ml 50 ML IV SCH ×2 (13:12→20:46)
[2022-11-11 18:00] VITALS: BP 128/80
[2022-11-11] MEDS: enoxaparin 40mg/0.4ml syringe SUBCUT SCH (20:00)
[2022-11-11 22:00] VITALS: BP 118/79
--- NOTE | 2022-11-12 02:00 | NUR ---
CONCRETE SAW OPERATOR documentation: I have reviewed and agree with assessments performed and documented by MICHAEL. Patient in room ORTHO 4020. I have received report from MICHAEL and had the opportunity to ask questions and assume patient care.
--- NOTE | 2022-11-12 02:37 | NUR ---
Problems reprioritized. Patient report given, questions answered & plan of care reviewed with SHIRA Dacosta.
[2022-11-12] MEDS: piperacillin/tazo 3.375gm/50ml 50 ML IV SCH ×4 (03:11→20:56)
[2022-11-12] MEDS: oxyCODONE/APAP 5-325mg tablet PO PRN ×4 (03:20→21:02)
[2022-11-12 06:00] VITALS: BP 108/78
--- NOTE | 2022-11-12 06:00 | NUR ---
Problems reprioritized. Patient report given, questions answered & plan of care reviewed with
[2022-11-12 10:00] VITALS: BP 108/80
--- NOTE | 2022-11-12 17:00 | NUR ---
I have reviewed and agree with interventions, assessments, and documentation by Barbra Song LVN.
[2022-11-12 18:00] VITALS: BP 151/88
--- NOTE | 2022-11-12 18:25 | NUR ---
Problems reprioritized. Patient report given, questions answered & plan of care reviewed with Leslee STANLEY.
[2022-11-12] MEDS: enoxaparin 40mg/0.4ml syringe SUBCUT SCH ×2 (20:00→20:31)
[2022-11-12 22:00] VITALS: BP 106/73
[2022-11-13] MEDS: piperacillin/tazo 3.375gm/50ml 50 ML IV SCH ×4 (02:21→19:56)
--- NOTE | 2022-11-13 05:48 | NUR ---
NURSERY MANAGER documentation: I have reviewed and agree with assessment performed and documented by EUNICE Ibanez
[2022-11-13] MEDS: oxyCODONE/APAP 5-325mg tablet PO PRN ×3 (05:54→19:11)
[2022-11-13 06:00] VITALS: BP 104/83
--- NOTE | 2022-11-13 06:29 | NUR ---
Problems reprioritized. Patient report given, questions answered & plan of care reviewed with Barbra STANLEY.
--- NOTE | 2022-11-13 06:37 | NUR ---
Patient in room ORTHO 4020. I have received report from Leslee STANLEY and had the opportunity to ask questions and assume patient care.
[2022-11-13 07:00] LABS: ALBUMIN 3.3 G/DL (3.4-5.0); ANION GAP 9 (8-16); BLOOD UREA NITROGEN 22 MG/DL (7-18); BUN/CREATININE RATIO 16.9 (10.0-20.0); CALCIUM 9.7 MG/DL (8.5-10.1); CHLORIDE 97 MMOL/L (99-107); GLUCOSE 126 MG/DL (70-104); POTASSIUM 4.2 MMOL/L (3.5-5.1); SODIUM 136 MMOL/L (135-145); TOTAL CARBON DIOXIDE 29.8 MMOL/L (24-32); eGFR 57 ML/MIN
[2022-11-13 07:01] LABS: BASOPHILS % (AUTO) 0.1 % (0-1); EOSINOPHILS % (AUTO) 0.1 % (0-6); HEMOGLOBIN 15.6 g/dl (14.0-17.9); LYMPHOCYTES # (AUTO) 1.9 X10'3 (1.1-4.8); LYMPHOCYTES % (AUTO) 10.7 % (21-51); MEAN CORPUSCULAR HEMOGLOBIN 30.2 PG (27.0-31.0); MEAN CORPUSCULAR HGB CONC 33.3 g/dL (33.0-36.5); MEAN CORPUSCULAR VOLUME 90.7 FL (78-98); MEAN PLATELET VOLUME 8.4 FL (7.4-10.4); MONOCYTES # (AUTO) 1.6 X10'3 (0-0.9); MONOCYTES % (AUTO) 9.1 % (2-12); NEUTROPHILS # (AUTO) 14.3 X10'3 (1.8-7.7); PLATELET COUNT 312 X10'3 (140-440); RED BLOOD COUNT 5.18 X10'6 (4.70-6.10); RED CELL DISTRIBUTION WIDTH 13.8 % (11.5-14.5); WHITE BLOOD COUNT 17.9 X10'3 (4.5-11.0)
[2022-11-13 10:00] VITALS: BP 112/84
--- NOTE | 2022-11-13 17:00 | NUR ---
I have reviewed and agree with interventions, assessments, and documentation by Barbra Song LVN.
[2022-11-13 18:00] VITALS: BP 126/77
--- NOTE | 2022-11-13 18:29 | NUR ---
Problems reprioritized. Patient report given, questions answered & plan of care reviewed with Tomeka SILVA.
--- NOTE | 2022-11-13 18:40 | NUR ---
Patient in room ORTHO 4020. I have received report from JADEN Belle and had the opportunity to ask questions and assume patient care.
[2022-11-13] MEDS: enoxaparin 40mg/0.4ml syringe SUBCUT SCH (19:22)
[2022-11-13 22:00] VITALS: BP 100/76
[2022-11-14] MEDS: piperacillin/tazo 3.375gm/50ml 50 ML IV SCH ×2 (02:02→08:35)
[2022-11-14] MEDS: oxyCODONE/APAP 5-325mg tablet PO PRN ×2 (02:39→08:42)
[2022-11-14 06:00] VITALS: BP 102/68
[2022-11-14 06:23] LABS: ALBUMIN 2.9 G/DL (3.4-5.0); ANION GAP 11 (8-16); BLOOD UREA NITROGEN 20 MG/DL (7-18); BUN/CREATININE RATIO 18.5 (10.0-20.0); CALCIUM 9.4 MG/DL (8.5-10.1); CHLORIDE 99 MMOL/L (99-107); CREATININE 1.08 MG/DL (0.60-1.10); GLUCOSE 138 MG/DL (70-104); SODIUM 136 MMOL/L (135-145); TOTAL CARBON DIOXIDE 26.2 MMOL/L (24-32); eGFR 70 ML/MIN
[2022-11-14 06:26] LABS: BASOPHILS % (AUTO) 0 % (0-1); EOSINOPHILS # (AUTO) 0.1 X10'3 (0-0.9); EOSINOPHILS % (AUTO) 0.7 % (0-6); HEMATOCRIT 41.9 % (42.0-52.0); HEMOGLOBIN 14.3 g/dl (14.0-17.9); LYMPHOCYTES # (AUTO) 1.6 X10'3 (1.1-4.8); LYMPHOCYTES % (AUTO) 10.2 % (21-51); MEAN CORPUSCULAR HEMOGLOBIN 30.8 PG (27.0-31.0); MEAN CORPUSCULAR VOLUME 90.5 FL (78-98); MEAN PLATELET VOLUME 8.6 FL (7.4-10.4); MONOCYTES # (AUTO) 1.7 X10'3 (0-0.9); MONOCYTES % (AUTO) 10.7 % (2-12); NEUTROPHILS # (AUTO) 12.5 X10'3 (1.8-7.7); NEUTROPHILS % (AUTO) 78.4 % (42-75); PLATELET COUNT 293 X10'3 (140-440); RED BLOOD COUNT 4.63 X10'6 (4.70-6.10); RED CELL DISTRIBUTION WIDTH 13.9 % (11.5-14.5)
--- NOTE | 2022-11-14 06:30 | NUR ---
Problems reprioritized. Patient report given, questions answered & plan of care reviewed with SHIRA Garcia.
--- NOTE | 2022-11-14 06:50 | NUR ---
Patient in room ORTHO 4020. I have received report from Tomeka and had the opportunity to ask questions and assume patient care.
--- NOTE | 2022-11-14 07:10 | NUR ---
Patient in room ORTHO 4020. I have received report from Radha Conley RN and had the opportunity to ask questions and assume patient care.
--- NOTE | 2022-11-14 07:10 | NUR ---
Problems reprioritized. Patient report given, questions answered & plan of care reviewed with Nia.
[2022-11-14 10:00] VITALS: BP 118/76
--- NOTE | 2022-11-14 10:03 | NUR ---
Case management was paged: [phone] Mihai Hyatt- Dr. Martinez is discharging but patient is refusing to be discharged and wants to go to rehab. Dr. Martinez doesn't see a need. Pls advise? TY Waiting on return call
--- NOTE | 2022-11-14 10:04 | NUR ---
Case management called back and stated that they will talk to patient during rounds
[2022-11-14] MEDS ORDERED: OXYC1TAB17 PO (11:35)
[2022-11-14] MEDS ORDERED: oxyCODONE/APAP 10/325mg tablet PO PRN (11:35)
[2022-11-14] MEDS ORDERED: AMOX-419 PO (11:35)
--- NOTE | 2022-11-14 13:00 | NUR ---
I have reviewed and agree with interventions, assessments, and documentation by Nia Munoz LVN.
--- NOTE | 2022-11-14 14:00 | NUR ---
Patient discharged home today. All discharge instructions were explained and all questions were answered. Patient was dressed and all belongings were gathered. IV removed by RN. Patient was wheeled down stairs and into private vehicle.
[2022-11-14] MEDS ORDERED: amox tr/potassium clavulanate 500mg/125mg TAB PO SCH (17:30)
== END 2022-11-14 13:35 | disposition home health service (06) | DRG 231 ==
LOC: PAS IN 10:13 → ORTHO 4S 18:45
PROVIDERS: ADMIT Surgery; ATTEND Surgery
PROC: 8E0W4CZ Robotic Assisted Procedure of Trunk Region, Percutaneous Endoscopic Approach (ICD-10-PCS; 2022-11-06)
PROC: 0DBN4ZZ Excision of Sigmoid Colon, Percutaneous Endoscopic Approach (ICD-10-PCS; principal; 2022-11-06 11:55)
DX: K57.32 Diverticulitis of large intestine without perforation or abscess without bleeding (principal); Z79.899 Other long term (current) drug therapy; T81.41XA Infection following a procedure, superficial incisional surgical site, initial encounter; Y83.8 Other surgical procedures as the cause of abnormal reaction of the patient, or of later complication, without mention of misadventure at the time of the procedure; Y92.230 Patient room in hospital as the place of occurrence of the external cause
CPT/HCPCS: 36415; 80048; 80053; 82948; 84145; 85025; 86885; 86900; 86901; 87081; 93005; 97110; 97161; 97530; A4215; A4615; A4618; A6253; A6258; A6449; C1758; G0378; J0131; J0694; J1100; J1650; J1885; J2175; J2250; J2310; J2405; J2543; J2704; J3010; J3490; J7042; J7120; P9045

== ENCOUNTER 2022-11-22 11:57 | Emergency (ER) | payer MEDICAID ==
[~2022-11-22] VITALS: Ht 175.3 cm; Wt 118.2 kg
[~2022-11-22 11:57] MED LIST changes: +AMOX-419 PO; +OXYC1TAB17 PO; -ceFOXitin 2GM-NS 100mL ADDvant 100 ML IV ONE; -famotidine 20mg tablet PO ONE; -ringers solution, lacted 1,000 ML IV SCH
[2022-11-22 12:27] VITALS: BP 138/87
[2022-11-22 12:56] LABS: CLARITY,URINE CLEAR (Clear); COLOR,URINE YELLOW (Yellow); GLUCOSE, URINE NEGATIVE (Neg); KETONES,URINE NEGATIVE (Neg); LEUKOCYTE ESTERASE ,URINE NEGATIVE (Neg); NITRITES, URINE NEGATIVE (Neg); OCCULT BLOOD,URINE NEGATIVE (Neg); PH,URINE 5.5 (4.8-8.0); PROTEIN,URINE NEGATIVE (Neg); UROBILINOGEN,URINE 0.2 E.U/dL (0.2-1.0)
[2022-11-22 13:01] LABS: UA COLLECTION TYPE CLN CATCH MIDSTREAM
[2022-11-22] MEDS ORDERED: FLO0.4C PO (14:00)
== END 2022-11-22 14:08 | disposition home or self-care (01) ==
LOC: ER 11:58
DX: R30.0 Dysuria (principal); R33.9 Retention of urine, unspecified; R30.9 Painful micturition, unspecified; Z86.14 Personal history of Methicillin resistant Staphylococcus aureus infection
CPT/HCPCS: 81003; 99283; A6212; A6449

== ENCOUNTER 2023-01-18 09:01 | Emergency (ER) | payer MEDICAID ==
[~2023-01-18] VITALS: Ht 172.7 cm; Wt 130.4 kg
[2023-01-18 09:23] VITALS: TEMP 98.5
[2023-01-18 13:10] LABS: BASOPHILS % (AUTO) 0.2 % (0-1); EOSINOPHILS # (AUTO) 0.1 X10'3 (0-0.9); EOSINOPHILS % (AUTO) 1.7 % (0-6); HEMOGLOBIN 16.7 g/dl (14.0-17.9); LYMPHOCYTES # (AUTO) 2.8 X10'3 (1.1-4.8); LYMPHOCYTES % (AUTO) 42.4 % (21-51); MEAN CORPUSCULAR HEMOGLOBIN 30.9 PG (27.0-31.0); MEAN CORPUSCULAR VOLUME 90.7 FL (78-98); MONOCYTES # (AUTO) 0.5 X10'3 (0-0.9); MONOCYTES % (AUTO) 7.2 % (2-12); NEUTROPHILS # (AUTO) 3.2 X10'3 (1.8-7.7); NEUTROPHILS % (AUTO) 48.5 % (42-75); PLATELET COUNT 262 X10'3 (140-440); RED BLOOD COUNT 5.41 X10'6 (4.70-6.10); RED CELL DISTRIBUTION WIDTH 14.8 % (11.5-14.5); WHITE BLOOD COUNT 6.7 X10'3 (4.5-11.0)
[2023-01-18 13:23] LABS: ALANINE AMINOTRANSFERASE 54 U/L (12-78); ALBUMIN 4.2 G/DL (3.4-5.0); ALBUMIN/GLOBULIN RATIO 1.2 (1.1-1.5); ALKALINE PHOSPHATASE 51 IU/L (46-116); ANION GAP 11 (8-16); ASPARTATE AMINO TRANSFERASE 29 U/L (10-37); BILIRUBIN,TOTAL 0.4 MG/DL (0.1-1.0); BLOOD UREA NITROGEN 20 MG/DL (7-18); BUN/CREATININE RATIO 18.7 (10.0-20.0); CALCIUM 9.6 MG/DL (8.5-10.1); CHLORIDE 107 MMOL/L (99-107); CREATININE 1.07 MG/DL (0.60-1.10); GLUCOSE 101 MG/DL (70-104); POTASSIUM 4.2 MMOL/L (3.5-5.1); SODIUM 144 MMOL/L (135-145); TOTAL PROTEIN 7.7 G/DL (6.4-8.2); eCRCL 74 ML/MIN; eGFR 71 ML/MIN
[2023-01-18 13:30] LABS: APTT 27 SECONDS (22-32)
[2023-01-18] MEDS ORDERED: HYDR30CR79 TOP (13:58)
[2023-01-18 14:01] VITALS: BP 136/97; PULSE 65; RESP 14; O2SAT 97
== END 2023-01-18 14:04 | disposition home or self-care (01) ==
LOC: ER 09:02
DX: K60.0 Acute anal fissure (principal); Z79.2 Long term (current) use of antibiotics; Z79.899 Other long term (current) drug therapy
CPT/HCPCS: 36415; 80053; 85025; 85730; 99283

== ENCOUNTER 2023-06-11 07:50 | Day surgery (SDC) | payer MEDICAID ==
[2023-06-07 15:42] LABS: BASOPHILS % (AUTO) 0.2 % (0-1); EOSINOPHILS # (AUTO) 0.1 X10'3 (0-0.9); EOSINOPHILS % (AUTO) 1.8 % (0-6); LYMPHOCYTES # (AUTO) 3.8 X10'3 (1.1-4.8); LYMPHOCYTES % (AUTO) 50.2 % (21-51); MEAN CORPUSCULAR HEMOGLOBIN 30.7 PG (27.0-31.0); MEAN CORPUSCULAR HGB CONC 34.1 g/dL (33.0-36.5); MEAN PLATELET VOLUME 8.2 FL (7.4-10.4); MONOCYTES # (AUTO) 0.5 X10'3 (0-0.9); MONOCYTES % (AUTO) 7.3 % (2-12); NEUTROPHILS % (AUTO) 40.5 % (42-75); PRE OP HEMATOCRIT 48.1 % (42.0-52.0); PRE OP HEMOGLOBIN 16.4 g/dL (14.0-17.9); PRE OP PLATELET COUNT 253 X10'3 (140-440); PRE OP WHITE BLOOD COUNT 7.5 10'3 (4.8-10.8); RED BLOOD COUNT 5.35 X10'6 (4.70-6.10); RED CELL DISTRIBUTION WIDTH 13.4 % (11.5-14.5)
[2023-06-07 15:51] LABS: ALBUMIN 4.1 G/DL (3.4-5.0); ALBUMIN/GLOBULIN RATIO 1.2 (1.1-1.5); ALKALINE PHOSPHATASE 46 IU/L (46-116); BLOOD UREA NITROGEN 15 MG/DL (7-18); BUN/CREATININE RATIO 15.3 (10.0-20.0); CALCIUM 9.6 MG/DL (8.5-10.1); CHLORIDE 105 MMOL/L (99-107); CREATININE 0.98 MG/DL (0.60-1.10); PRE OP ALT 76 U/L (30-65); PRE OP ANION GAP 9 (8-16); PRE OP AST 39 U/L (10-37); PRE OP BILIRUB, TOTAL 0.4 MG/DL (0.0-1.0); PRE OP GLUCOSE 105 MG/DL (70-104); PRE OP POTASSIUM 4.1 MMOL/L (3.4-5.1); PRE OP SODIUM 141 MMOL/L (135-145); TOTAL CARBON DIOXIDE 27.4 MMOL/L (24-32); TOTAL PROTEIN 7.4 G/DL (6.4-8.2); eGFR 79 ML/MIN
[~2023-06-11] VITALS: Ht 175.3 cm; Wt 135.6 kg
[2023-06-11] VITALS (17 sets, daily range): BP systolic 104–184; BP diastolic 70–123; PULSE 70–101; RESP 9–18; TEMP 98.3; O2SAT 90–98
[~2023-06-11 07:50] MED LIST changes: -AMOX-419 PO; -AMOX-580 PO; -LACT1CAP65 PO; +NO HOME MEDS; -OXYC1TAB17 PO; -POTA-207 PO; +ceFAZolin inj. 3,000 MG in normal saline 100ml IV soln 100 ML IV ONE; +famotidine 20mg tablet PO ONE; +ringers solution, lacted 1,000 ML IV SCH
[2023-06-11] MEDS ORDERED: enalaprilat dihydrate 2.5mg/2ml vial IV PRN (09:30)
[2023-06-11] MEDS ORDERED: ringers solution, lacted 1,000 ML IV SCH (09:30)
[2023-06-11] MEDS ORDERED: meperidine/PF 25mg/ml syringe IV PRN ×2 (09:30)
[2023-06-11] MEDS ORDERED: morphine 4 MG/ML inj SYRINge IV PRN (09:30)
[2023-06-11] MEDS ORDERED: morphine 2 MG/ML inj. syringe IV PRN (09:30)
[2023-06-11] MEDS ORDERED: labetalol 20mg/4ml (5mg/ml) syringe IV PRN (09:30)
[2023-06-11] MEDS ORDERED: proCHLORperazine 10 MG/2 ml inj IV PRN (09:30)
[2023-06-11] MEDS ORDERED: ondansetron/PF 4mg/2ml inj IV PRN (09:30)
[2023-06-11] MEDS ORDERED: LIDOcaine 1% 30ml preserv. free vial ONE (10:11)
[2023-06-11] MEDS ORDERED: BUPIVACAINE liposomal/PF 13.3 MG/ML vial IM ONE (10:12)
[2023-06-11] MEDS ORDERED: BUPIVAcaine 2.5mg/ml inj 50ml vial (contains preservative) ONE (10:12)
[2023-06-11] MEDS ORDERED: BUPIVAcaine/PF 2.5mg/ml (0.25%) 10ml vial ONE ×2 (10:14→10:31)
[2023-06-11] MEDS ORDERED: acetaminophen 1000 MG/100ml vial IV ONE (10:20)
[2023-06-11] MEDS ORDERED: sevoflurane 250ml liquid IH ONE (10:20)
[2023-06-11] MEDS ORDERED: dexamethasone sod phosphate 10mg/ml inj ONE (10:20)
[2023-06-11] MEDS ORDERED: midazolam 1 mg/ML 2ml injection ONE (10:25)
[2023-06-11] MEDS ORDERED: fentaNYL /PF 50mcg/ml 5ml ampule ONE (10:25)
[2023-06-11] MEDS ORDERED: rocuronium 10mg/ml inj IV ONE (10:41)
[2023-06-11] MEDS ORDERED: LIDOcaine 2% (20mg/ml) 5ml vial ONE (10:42)
[2023-06-11] MEDS ORDERED: propofol inj 20 ML IV ONE (10:42)
[2023-06-11] MEDS ORDERED: neostigmine methylsulfate 1 MG/ML 10ml vial ONE (11:49)
[2023-06-11] MEDS ORDERED: glycopyrrolate 0.2mg/ml inj ONE (11:49)
[2023-06-11] MEDS ORDERED: ondansetron/PF 4mg/2ml inj ONE (11:49)
[2023-06-11] MEDS ORDERED: oxyCODONE/APAP 10/325mg tablet PO PRN (12:35)
[2023-06-11] MEDS: meperidine/PF 25mg/ml syringe IV PRN ×2 (13:15→13:21)
[2023-06-11] MEDS ORDERED: insulin Lispro (HumaLOG) vial - multi-dose SQ SCH (13:30)
[2023-06-11] MEDS ORDERED: dextrose 50%-water 50ml dispensing syringe IV PRN ×2 (13:30)
[2023-06-11] MEDS ORDERED: MESSAGE TO PHARMACY PO ONE (13:30)
[2023-06-11] MEDS ORDERED: glucagon, human recombinant 1mg kit SUBCUT PRN (13:30)
[2023-06-11] MEDS ORDERED: DEXTROSE 15 GM of carb/4 tabs (each vial/BOTTLE has 4 tablets) PO PRN ×2 (13:30)
[2023-06-11] MEDS ORDERED: insulin glargine (Lantus) pen - multi-dose SQ SCH (21:00)
== END 2023-06-11 15:22 | disposition home or self-care (01) ==
LOC: PAS 07:50
PROVIDERS: ATTEND Surgery
DX: K43.2 Incisional hernia without obstruction or gangrene (principal); E66.9 Obesity, unspecified; Z68.41 Body mass index [BMI] 40.0-44.9, adult; J44.9 Chronic obstructive pulmonary disease, unspecified; Z86.19 Personal history of other infectious and parasitic diseases; Z86.14 Personal history of Methicillin resistant Staphylococcus aureus infection; Z90.49 Acquired absence of other specified parts of digestive tract; Z98.890 Other specified postprocedural states; Z87.891 Personal history of nicotine dependence; Z79.899 Other long term (current) drug therapy; Z80.0 Family history of malignant neoplasm of digestive organs
CPT/HCPCS: 36415; 49593; 64488; 80053; 82948; 85025; 93005; C1781; C9290; J0131; J0690; J1100; J1815; J2175; J2250; J2405; J2704; J2710; J3010; J3490; J7030; J7120; Z7506; Z7508; Z7512; A4215; A4618

== ENCOUNTER 2023-09-26 07:14 | Emergency (ER) | payer MEDICAID ==
[~2023-09-26] VITALS: Ht 172.7 cm; Wt 139.9 kg
[~2023-09-26 07:14] MED LIST changes: -ceFAZolin inj. 3,000 MG in normal saline 100ml IV soln 100 ML IV ONE; -famotidine 20mg tablet PO ONE; -ringers solution, lacted 1,000 ML IV SCH
[2023-09-26 07:19] VITALS: TEMP 97.5
[2023-09-26] MEDS: diatr meglu/diatrizoate 30ml oral sol.-(3 dose) bottle PO SCH (08:32)
[2023-09-26] MEDS: normal saline 1000ml 1,000 ML IV ONE (08:32)
[2023-09-26 08:46] LABS: BASOPHILS % (AUTO) 0.6 % (0-1); EOSINOPHILS # (AUTO) 0.1 X10'3 (0-0.9); EOSINOPHILS % (AUTO) 1.2 % (0-6); HEMATOCRIT 49.8 % (42.0-52.0); LYMPHOCYTES # (AUTO) 2.8 X10'3 (1.1-4.8); LYMPHOCYTES % (AUTO) 47.9 % (21-51); MEAN CORPUSCULAR HEMOGLOBIN 30.7 PG (27.0-31.0); MEAN CORPUSCULAR HGB CONC 34.2 g/dL (33.0-36.5); MEAN CORPUSCULAR VOLUME 89.9 FL (78-98); MEAN PLATELET VOLUME 8.3 FL (7.4-10.4); MONOCYTES # (AUTO) 0.3 X10'3 (0-0.9); MONOCYTES % (AUTO) 5.7 % (2-12); NEUTROPHILS # (AUTO) 2.6 X10'3 (1.8-7.7); NEUTROPHILS % (AUTO) 44.6 % (42-75); PLATELET COUNT 238 X10'3 (140-440); RED BLOOD COUNT 5.54 X10'6 (4.70-6.10); RED CELL DISTRIBUTION WIDTH 13.9 % (11.5-14.5); WHITE BLOOD COUNT 5.9 X10'3 (4.5-11.0)
[2023-09-26 08:57] LABS: ALBUMIN 4.1 G/DL (3.4-5.0); ANION GAP 11 (8-16); CALCIUM 9.4 MG/DL (8.5-10.1); CHLORIDE 106 MMOL/L (99-107); CREATININE 0.98 MG/DL (0.60-1.10); GLUCOSE 117 MG/DL (70-104); POTASSIUM 4.3 MMOL/L (3.5-5.1); SODIUM 143 MMOL/L (135-145); TOTAL CARBON DIOXIDE 25.6 MMOL/L (24-32); eCRCL 79 ML/MIN; eGFR 79 ML/MIN
[2023-09-26 08:58] LABS: BLOOD UREA NITROGEN 19 MG/DL (7-18); BUN/CREATININE RATIO 19.4 (10.0-20.0)
[2023-09-26] MEDS ORDERED: iohexol 300mg/ml 100ml inj. ONE (09:56)
[2023-09-26 11:07] VITALS: BP 148/101; PULSE 67; RESP 14; O2SAT 99
== END 2023-09-26 11:10 | disposition home or self-care (01) ==
LOC: ER 07:14
DX: M62.08 Separation of muscle (nontraumatic), other site (principal); Z56.0 Unemployment, unspecified; Z87.891 Personal history of nicotine dependence; Z72.89 Other problems related to lifestyle
CPT/HCPCS: 36415; 74177; 80048; 85025; 96360; 99285; J3490; J7030; Q9963; Q9967

== ENCOUNTER 2023-11-10 23:14 | Emergency (ER) | payer MEDICAID ==
[~2023-11-10] VITALS: Ht 172.7 cm; Wt 140.0 kg
[2023-11-10 23:28] VITALS: TEMP 98.5
[2023-11-11 02:45] VITALS: BP 129/97; PULSE 83; RESP 18; O2SAT 96
== END 2023-11-11 02:44 | disposition home or self-care (01) ==
LOC: ER 23:15
DX: B34.9 Viral infection, unspecified (principal); Z20.822 Contact with and (suspected) exposure to COVID-19; Z90.49 Acquired absence of other specified parts of digestive tract
CPT/HCPCS: 36415; 87502; 87503; 87811; 99283

== ENCOUNTER 2024-06-02 08:00 | Outpatient (CLI) | payer MEDICAID ==
[~2024-06-02 08:00] MED LIST changes: +ATOR10TA70 PO; -NO HOME MEDS; +SEMA1PEN5 SQ
== END 2024-06-02 23:59 | disposition home or self-care (01) ==
LOC: CARD DIAG 08:00
PROVIDERS: ATTEND Surgery
DX: Z01.810 Encounter for preprocedural cardiovascular examination (principal); I08.8 Other rheumatic multiple valve diseases; R94.31 Abnormal electrocardiogram [ECG] [EKG]
CPT/HCPCS: 93306

== ENCOUNTER 2024-06-04 08:11 | Inpatient (IN) | payer MEDICAID ==
[2024-06-01 15:50] LABS: BASOPHILS % (AUTO) 0.4 % (0-1); EOSINOPHILS # (AUTO) 0.1 X10'3 (0-0.9); EOSINOPHILS % (AUTO) 1.4 % (0-6); LYMPHOCYTES # (AUTO) 3.5 X10'3 (1.1-4.8); LYMPHOCYTES % (AUTO) 36.2 % (21-51); MEAN CORPUSCULAR HEMOGLOBIN 31.8 PG (27.0-31.0); MEAN CORPUSCULAR HGB CONC 34.8 g/dL (33.0-36.5); MEAN CORPUSCULAR VOLUME 91.4 FL (78-98); MONOCYTES # (AUTO) 0.8 X10'3 (0-0.9); MONOCYTES % (AUTO) 8.1 % (2-12); NEUTROPHILS # (AUTO) 5.2 X10'3 (1.8-7.7); NEUTROPHILS % (AUTO) 53.9 % (42-75); PRE OP HEMATOCRIT 50.2 % (42.0-52.0); PRE OP HEMOGLOBIN 17.4 g/dL (14.0-17.9); PRE OP PLATELET COUNT 253 X10'3 (140-440); PRE OP WHITE BLOOD COUNT 9.7 10'3 (4.8-10.8); RED BLOOD COUNT 5.49 X10'6 (4.70-6.10); RED CELL DISTRIBUTION WIDTH 13.5 % (11.5-14.5)
[2024-06-01 16:06] LABS: ALBUMIN 4.1 G/DL (3.4-5.0); ALBUMIN/GLOBULIN RATIO 1.3 (1.1-1.5); ALKALINE PHOSPHATASE 42 IU/L (46-116); BLOOD UREA NITROGEN 15 MG/DL (7-18); BUN/CREATININE RATIO 13.5 (10.0-20.0); CHLORIDE 104 MMOL/L (99-107); CREATININE 1.11 MG/DL (0.60-1.10); PRE OP ALT 73 U/L (30-65); PRE OP ANION GAP 11 (8-16); PRE OP AST 36 U/L (10-37); PRE OP BILIRUB, TOTAL 0.6 MG/DL (0.0-1.0); PRE OP GLUCOSE 118 MG/DL (70-104); PRE OP POTASSIUM 3.6 MMOL/L (3.4-5.1); PRE OP SODIUM 142 MMOL/L (135-145); TOTAL CARBON DIOXIDE 27.4 MMOL/L (24-32); TOTAL PROTEIN 7.3 G/DL (6.4-8.2); eGFR 68 ML/MIN
[2024-06-04] VITALS (25 sets, daily range): BP systolic 108–143; BP diastolic 69–99; PULSE 74–112; RESP 12–22; TEMP 98.1–99.3; O2SAT 90–100
[~2024-06-04] VITALS: Ht 175.3 cm; Wt 136.4 kg
[2024-06-04] MEDS: Cefazolin 3 GM/100ML NS IVPB 100 ML IV ONE (05:30)
[~2024-06-04 08:11] MED LIST changes: +LIDOcaine 1%/PF 5ML 10 MG/ML VIAL ONE; +LIDOcaine 2% (20mg/ml) 5ml vial ONE; +ROPIVAcaine 0.5% (5mg/ml) 30ml vial ONE; +dexamethasone sod phosphate 4mg/ml inj. ONE; +fentaNYL/PF 50MCG/1 ML 2ML syringe ONE; +glycopyrrolate 0.2mg/ml inj ONE; +midazolam 1 mg/ML 2ml injection ONE; +neostigmine methylsulfate 1 MG/ML 10ml vial ONE; +ondansetron/PF 4mg/2ml inj ONE; +propofol inj 20 ML IV ONE; +rocuronium 10mg/ml inj IV ONE
[2024-06-04] MEDS: famotidine 20mg tablet PO ONE (09:07)
[2024-06-04] MEDS: ringers solution, lacted 1,000 ML IV SCH ×2 (09:08→09:20)
[2024-06-04] MEDS ORDERED: labetalol 20mg/4ml (5mg/ml) syringe IV PRN (09:20)
[2024-06-04] MEDS ORDERED: morphine 4 MG/ML inj SYRINge IV PRN (09:20)
[2024-06-04] MEDS ORDERED: enalaprilat dihydrate 2.5mg/2ml vial IV PRN (09:20)
[2024-06-04] MEDS ORDERED: ondansetron/PF 4mg/2ml inj IV PRN (09:20)
[2024-06-04] MEDS ORDERED: proCHLORperazine 10 MG/2 ml inj IV PRN (09:20)
[2024-06-04] MEDS ORDERED: meperidine/PF 25mg/ml syringe IV PRN ×2 (09:20)
[2024-06-04] MEDS ORDERED: fentaNYL /PF 50mcg/ml 5ml ampule ONE (10:16)
[2024-06-04] MEDS ORDERED: midazolam 1 mg/ML 2ml injection ONE (10:16)
[2024-06-04] MEDS ORDERED: BUPIVAcaine 2.5mg/ml inj 50ml vial (contains preservative) ONE ×2 (10:28→10:31)
[2024-06-04] MEDS ORDERED: BUPIVACAINE liposomal/PF 13.3 MG/ML vial IM ONE ×2 (10:32→10:46)
[2024-06-04] MEDS ORDERED: sevoflurane 250ml liquid IH ONE (10:46)
[2024-06-04] MEDS ORDERED: LIDOcaine 1% 30ml preserv. free vial ONE (10:46)
[2024-06-04] MEDS ORDERED: LIDOcaine 2% (20mg/ml) 5ml vial ONE (10:49)
[2024-06-04] MEDS ORDERED: propofol inj 20 ML IV ONE (10:49)
[2024-06-04] MEDS ORDERED: rocuronium 10mg/ml inj IV ONE (10:52)
[2024-06-04] MEDS: BUPIVAcaine 2.5mg/ml inj 50ml vial (contains preservative) SQ ONE (12:01)
[2024-06-04] MEDS ORDERED: ondansetron/PF 4mg/2ml inj ONE (13:01)
[2024-06-04] MEDS ORDERED: naloxone 0.4 mg/ml inj IV PRN (13:30)
[2024-06-04] MEDS ORDERED: potassium CL 20mEq in D5-1/2NS 1,000 ML IV SCH (13:30)
[2024-06-04] MEDS: morphine 2 MG/ML inj. syringe IV PRN (13:40)
[2024-06-04] MEDS: meperidine/PF 25mg/ml syringe IV PRN (13:48)
[2024-06-04] MEDS: HYDROmorph/NS 0.2 mg/ml PCA 100 ML IV SCH (15:41)
[2024-06-04] MEDS: sennosides/docusate sodium tablet PO SCH (22:23)
[2024-06-04] MEDS: atorvastatin 10mg tablet PO SCH (22:23)
[2024-06-04] MEDS: docusate sod 100mg capsule PO SCH (22:23)
[2024-06-04] MEDS: normal saline 1000ml 1,000 ML IV SCH (22:27)
[2024-06-04] MEDS: heparin, porcine 5000 units/ml vial SQ SCH (22:27)
[2024-06-05 02:00] VITALS: BP 106/70; PULSE 94; RESP 18; TEMP 98.1; O2SAT 100
[2024-06-05 06:00] VITALS: BP 100/73; PULSE 91; RESP 17; TEMP 98; O2SAT 94
[2024-06-05 08:00] VITALS: RESP 16; O2SAT 94
[2024-06-05] MEDS ORDERED: OXYC1TAB17 PO (09:05)
[2024-06-05 10:09] VITALS: RESP 16
[2024-06-05] MEDS: oxyCODONE/APAP 10/325mg tablet PO PRN (10:09)
== END 2024-06-05 10:29 | disposition home or self-care (01) | DRG 227 ==
LOC: PAS 08:11 → PAS IN 13:28 → SUR 3N 19:00
PROVIDERS: ADMIT Surgery; ATTEND Surgery
PROC: 8E0W4CZ Robotic Assisted Procedure of Trunk Region, Percutaneous Endoscopic Approach (ICD-10-PCS; 2024-06-04)
PROC: 3E0T3BZ Introduction of Anesthetic Agent into Peripheral Nerves and Plexi, Percutaneous Approach (ICD-10-PCS; 2024-06-04)
PROC: 0WPF4JZ Removal of Synthetic Substitute from Abdominal Wall, Percutaneous Endoscopic Approach (ICD-10-PCS; 2024-06-04)
PROC: 0WUF4JZ Supplement Abdominal Wall with Synthetic Substitute, Percutaneous Endoscopic Approach (ICD-10-PCS; principal; 2024-06-04 10:46)
DX: K43.2 Incisional hernia without obstruction or gangrene (principal); K66.0 Peritoneal adhesions (postprocedural) (postinfection); Z79.899 Other long term (current) drug therapy; Z80.0 Family history of malignant neoplasm of digestive organs
CPT/HCPCS: 36415; 80053; 82948; 85025; 93005; 93306; A4215; A4618; C1776; C1781; G0378; J0131; J0666; J0690; J1100; J1171; J1644; J2003; J2175; J2250; J2270; J2405; J2704; J2710; J2795; J3010; J3490; J7030; J7120

== ENCOUNTER 2024-10-07 09:54 | Emergency (ER) | payer MEDICAID ==
[~2024-10-07] VITALS: Ht 175.3 cm; Wt 143.2 kg
[~2024-10-07 09:54] MED LIST changes: -LIDOcaine 1%/PF 5ML 10 MG/ML VIAL ONE; -LIDOcaine 2% (20mg/ml) 5ml vial ONE; +OXYC1TAB17 PO; -ROPIVAcaine 0.5% (5mg/ml) 30ml vial ONE; -dexamethasone sod phosphate 4mg/ml inj. ONE; -fentaNYL/PF 50MCG/1 ML 2ML syringe ONE; -glycopyrrolate 0.2mg/ml inj ONE; -midazolam 1 mg/ML 2ml injection ONE; -neostigmine methylsulfate 1 MG/ML 10ml vial ONE; -ondansetron/PF 4mg/2ml inj ONE; -propofol inj 20 ML IV ONE; -rocuronium 10mg/ml inj IV ONE
[2024-10-07 10:01] VITALS: BP 140/85
--- NOTE | 2024-10-07 11:02 | RADIOLOGY REPORT ---
CLINICAL INDICATION: ELBOW PAIN TECHNIQUE: 3 radiographic views of the right elbow were obtained. Comparison: None FINDINGS/IMPRESSION: There is no evidence of acute fracture or dislocation. Well corticated ossific density adjacent to th e radial head is likely sequela of chronic trauma. The visualized joint space is well maintained. The alignment is anatomical. There is no radiopaque foreign body.
--- NOTE | 2024-10-07 11:04 | Physician Documentation ---
History of Present Illness ~ Chief Complaint: Elbow pain Stated Complaint: FALL/R ELBOW PAIN Time Seen by MD: 10:41 Primary Medical Doctor: [facility] HPI Patient fell, landed on L elbow, now complaining of pain. Denies other injury/symptoms. Tetanus within 5 years: Yes Medication Reconciliation Allergies: Coded Allergies: No Known Allergies (Unverified , 10/07/24) Scheduled Atorvastatin Calcium (Atorvastatin Calcium), 1 TAB PO HS, (Reported) Semaglutide (Wegovy), 1 MG SQ QTHURSDAY, (Reported) Scheduled PRN Oxycodone Hcl/Acetaminophen (Oxycodone-Acetaminophen 10-325), 1 TAB PO Q6H PRN for moderate or severe pain 4-10 Past Medical History Past Medical History: Seizures, Cirrohsis, Diverticulitis, Pancreatitis, Hernia, Extremity Fracture, MRSA Abscess Past Surgical History: no surgical history, colectomy Patient History: FH: colon cancer MOTHER Alcohol Use: Sober Drug Use: none Lives with: Alone Lives In: Home Occupation: unemployed Review of Systems All Other Systems at this time: Reviewed and Negative Physical Exam Vital Signs: RN Vital Signs have been reviewed: Yes, Temperature: 97.8, Source: Temporal, Heart Rate: 83, Respiratory Rate: 18, BP: 140/85, Pulse Oximetry: 95, Weight: 143.200 Physical Exam HEENT: PERRL, moist oral mucosa, EOMI Pulmonary: No respiratory distress MSK: no deformity; L elbow diffusely TTP Skin: w/d/i, no rash Neuro: alert, nonfocal Psych: normal affect Progress Results/Orders Results/Orders Vital Signs 10/07/24 10:01 Temp 97.8 Pulse 83 Resp 18 B/P (MAP) 140/85 Pulse Ox 95 Medical Decision Making Findings 59 year old male with elbow pain. Xray unremarkable, counseled return precautions. Additional Comment Ddx = fracture, dislocation, contusion, hematoma Departure Disposition: 01 HOME / SELF CARE / HOMELESS Impression: Primary Impression: Contusion Condition: Stable Referrals: NO PRIMARY CARE PROVIDER (PCP) Education Educated: Patient Educated regarding: diagnosis, treatment, prognosis, need for follow up Signature Scribe Signature: . Attestation: . BEST JEAN BAPTISTE MD October 07, 2024 11:04
[2024-10-07 11:12] VITALS: PULSE 83; RESP 18; TEMP 97.8; O2SAT 96
== END 2024-10-07 11:16 | disposition home or self-care (01) ==
LOC: ER 09:55
DX: S50.02XA Contusion of left elbow, initial encounter (principal); Z79.899 Other long term (current) drug therapy; Z56.0 Unemployment, unspecified; Z60.2 Problems related to living alone; W18.39XA Other fall on same level, initial encounter; Y93.89 Activity, other specified; Y92.89 Other specified places as the place of occurrence of the external cause; Y99.8 Other external cause status
CPT/HCPCS: 73080; 99283

== ENCOUNTER 2025-02-17 09:44 | Emergency (ER) | payer MEDICAID ==
[~2025-02-17] VITALS: Ht 175.3 cm; Wt 143.2 kg
[2025-02-17 09:48] VITALS: TEMP 98.4
[2025-02-17 10:05] LABS: MEAN PLATELET VOLUME 7.7 FL (7.4-10.4); RED CELL DISTRIBUTION WIDTH 13.9 % (11.5-14.5)
[2025-02-17 10:25] LABS: CREATININE 0.92 MG/DL (0.60-1.10); TOTAL CARBON DIOXIDE 27.1 MMOL/L (24-32); eCRCL 86 ML/MIN; eGFR 84 ML/MIN
[2025-02-17 11:28] LABS: LEUKOCYTE ESTERASE ,URINE NEGATIVE (Neg); NITRITES, URINE NEGATIVE (Neg); OCCULT BLOOD,URINE LARGE (Neg)
--- NOTE | 2025-02-17 11:35 | Physician Documentation ---
History of Present Illness General Chief Complaint: Flank Pain Stated Complaint: BACK AND GROIN PAIN Time Seen by MD: 11:25 [facility] Mode of Arrival: POV History of Present Illness Initial Comments The patient is a 59-year-old male who presents with right-sided flank pain that began about 830 this morning while he was at work. He works in construction. He has no prior history of renal colic. His only regular medication is Lipitor. Medication Reconciliation Allergies: Coded Allergies: No Known Allergies (Unverified , 02/17/25) Scheduled Atorvastatin Calcium (Atorvastatin Calcium), 1 TAB PO HS, (Reported) Semaglutide (Wegovy), 1 MG SQ QTHURSDAY, (Reported) Scheduled PRN Oxycodone Hcl/Acetaminophen (Oxycodone-Acetaminophen 10-325), 1 TAB PO Q6H PRN for moderate or severe pain 4-10 Past Medical History Past Medical History: Seizures, Cirrohsis, Diverticulitis, Pancreatitis, Hernia, Extremity Fracture, MRSA Abscess Past Surgical History: no surgical history, colectomy Smoking: Cigarettes Alcohol Use: Sober Drug Use: none Lives with: Alone Lives In: Home Occupation: unemployed Review of Systems ROS A 10 system review is negative except as noted in the HPI. Physical Exam Physical Exam Vital Signs: Temperature: 98.4, Source: Temporal, Heart Rate: 72, Respiratory Rate: 24, BP: 159/101, Pulse Oximetry: 96, Weight: 143.180 Oxygen Flow Rate: 0 Physical Exam Physical Exam Vitals and nursing note reviewed. Constitutional: General: Patient is awake, alert, oriented x 4 in no acute distress and well appearing. Speech is clear and lucid. Appearance: Normal appearance. Patient is complaining of severe right-sided flank pain. HENT: Head: Normocephalic and atraumatic. Mouth/Throat: Mouth: Mucous membranes are moist. Pharynx: Oropharynx is clear. Eyes: General: No scleral icterus. Extraocular Movements: Extraocular movements intact. Pupils: Pupils are equal, round, and reactive to light. Neck: Supple, no Kernig or Brudzinski sign. Cardiovascular: Rate and Rhythm: Normal rate and regular rhythm. Heart sounds: No murmur heard. Pulmonary: Effort: No respiratory distress. Breath sounds: No wheezing, rhonchi or rales. Abdominal: General: There is no distension. Palpations: There is no fluid wave, hepatomegaly or mass. Tenderness: There is no abdominal tenderness. There is no guarding. Musculoskeletal: General: No swelling or deformity. Skin: Coloration: Skin is not jaundiced. Findings: No erythema or rash. Neurological: Mental Status: Patient is alert. Progress Results/Orders Results/Orders Orders - GIANFRANCO CRANE MD Ct Abdomen Pelvis (02/17/25 12:52) Completed Orders - GIANFRANCO CRANE MD Cbc/Diff (02/17/25 09:49) BMP (02/17/25 09:49) Lipase (02/17/25 09:49) CMP (02/17/25 09:49) Ketorolac Trometh 30mg/Ml Vial (Toradol (02/17/25 11:35) Normal Saline 1000ml (0.9% Sodium Chlori (02/17/25 11:35) Ua W/Microscopic, Cult If Ind (02/17/25 10:00) Ct Abdomen Pelvis (02/17/25 12:52) Medications Received in ER Medications (Trade) Dose Ordered Sig/Lucas Route PRN Reason Start Time Stop Time Status Last Admin Dose Admin (Toradol inj. 30mg/ml) 30 mg ONCE ONCE IV 02/17/25 11:35 02/17/25 11:36 DC 02/17/25 11:58 30 MG Sodium Chloride 1,000 ml @ 1,000 mls/hr ONCE ONCE IV 02/17/25 11:35 02/17/25 12:34 DC 02/17/25 11:58 1,000 MLS/HR Vital Signs 02/17/25 02/17/25 02/17/25 02/17/25 09:48 11:23 11:26 11:58 Temp 98.4 Pulse 66 72 Resp 16 18 24 16 B/P (MAP) 134/90 159/101 (120) Pulse Ox 99 96 O2 Flow Rate 0 0 02/17/25 02/17/25 13:48 14:08 Pulse 67 Resp 18 17 B/P (MAP) 117/74 (88) Pulse Ox 97 Laboratory Tests Test 02/17/25 09:58 02/17/25 10:00 White Blood Count 5.9 Red Blood Count 5.38 Hemoglobin 16.4 Hematocrit 47.9 Mean Corpuscular Volume 89.0 Mean Corpuscular Hemoglobin 30.5 Mean Corpuscular Hemoglobin Concent 34.2 Red Cell Distribution Width 13.9 Platelet Count 222 Mean Platelet Volume 7.7 Neutrophils (%) (Auto) 49.6 Lymphocytes (%) (Auto) 40.8 Monocytes (%) (Auto) 7.6 Eosinophils (%) (Auto) 1.8 Basophils (%) (Auto) 0.2 Neutrophils # (Auto) 2.9 Lymphocytes # (Auto) 2.4 Monocytes # (Auto) 0.5 Eosinophils # (Auto) 0.1 Basophils # (Auto) 0.0 CBC Comment Sodium Level 145 Potassium Level 4.2 Chloride Level 109 H Carbon Dioxide Level 27.1 Anion Gap 9 Blood Urea Nitrogen 18 Creatinine 0.92 Estimated GFR/1.73 m2 84 BUN/Creatinine Ratio 19.6 Glucose Level 123 H Calcium Level 9.1 Total Bilirubin 0.5 Aspartate Amino Transf (AST/SGOT) 63 H Alanine Aminotransferase (ALT/SGPT) 114 H Alkaline Phosphatase 39 L Total Protein 7.0 Albumin 4.0 Globulin 3.0 Albumin/Globulin Ratio 1.3 Lipase 74 Chemistry Comments Urine Specimen Description Cln catch midstream Urine Color Yellow Urine Clarity Clear Urine pH 5.5 Urine Specific [place] >=1.030 Urine Protein Trace Urine Glucose (UA) Negative Urine Ketones Negative Urine Occult Blood Large H Urine Nitrite Negative Urine Bilirubin Negative Urine Urobilinogen 0.2 Urine Leukocyte Esterase Negative Urine RBC 20-50 Urine WBC 0-4 Urine Squamous Epithelial Cells Few Urine Bacteria None seen Urine Mucus Moderate Urine Culture Indicated Not ind Volume Urine Centrifuged 10 ml Urine Comment Medical Decision Making Findings Patient has a 1 mm right-sided ureteric stone at the UVJ. I am going to prescribe pain medication and have the patient follow-up with his provider. I have given him return precautions, as well. Departure Disposition: HOME / SELF CARE / HOMELESS Impression: Primary Impression: Ureterolithiasis Condition: Stable Additional Instructions: Stay well hydrated, this is important. Take ibuprofen as needed for pain. For breakthrough pain (when ibuprofen isn't enough) I have sent a prescription for a stronger pain reliever to your pharmacy. You can always return here, as necessary. Referrals: NO PRIMARY CARE PROVIDER (PCP) Prescriptions Oxycodone HCl/Acetaminophen (Percocet 5-325 mg Tablet) 5 Mg-325 Mg Tablet 1-2 TABLET PO Q4H PRN for pain, #20 TABLET Prov: GIANFRANCO CRANE MD 02/17/25 Education Educated: Patient Educated regarding: diagnosis, treatment, prognosis, need for follow up Signature Scribe Signature: . Attestation: . GIANFRANCO CRANE MD Feb 17, 2025 11:35
[2025-02-17] MEDS: normal saline 1000ml 1,000 ML IV ONE (11:58)
[2025-02-17] MEDS: ketorolac trometh 30MG/ML vial 30 MG/ML VIAL IV ONE (11:58)
[2025-02-17 12:00] LABS: UA COLLECTION TYPE CLN CATCH MIDSTREAM
[2025-02-17 12:01] LABS: SQUAMOUS EPITHELIAL CELL,UR FEW /LPF (FEW)
[2025-02-17 12:02] LABS: MUCUS STRANDS MODERATE /LPF (Neg)
--- NOTE | 2025-02-17 13:48 | RADIOLOGY REPORT ---
CLINICAL HISTORY: Stone study TECHNIQUE: CT of the abdomen and pelvis was performed without IV contrast. This exam was performed according to our departmental dose optimization program. Up-to-date CT equipment and radiation dose reduction techniques are utilized as appropriate. CTDI 33.7 DLP 1876 COMPARISON: CT CT ABDOMEN PELVIS on DOS: 09/26/23, CT ABDOMEN PELVIS on DOS: 10/19/22, CT ABDOMEN PELVIS on DOS: 07/31/22, CT ABDOMEN PELVIS on DOS: 03/13/22, CT ABDOMEN PELVIS on DOS: 09/05/20 FINDINGS: Abdomen/Pelvis: The spleen, pancreas, adrenal glands, and prostate gland are grossly unremarkable. There is diffuse hepatic steatosis and gallstones. There is a 1 mm right UVJ calculus resulting in mild upstream hydroureteronephrosis. There is a 2 mm nonobstructing right renal calculus. There is nonspecific stranding around both kidneys. The abdominal aorta is normal in course and caliber. There are mild atherosclerotic calcifications. There is no free intraperitoneal air or fluid. There is no enlarged abdominal pelvic lymph node. There is no bowel wall thickening or dilatation. The appendix is normal. There is an umbilical hernia repair. There has been sigmoid surgery with reanastomosis. There is [id number] colonic diverticulosis. Other: The imaged lower thorax demonstrate mild atelectatic changes at both lung bases. No acute osseous abnormality is evident. Impression: 1 mm right UVJ calculus resulting in mild upstream hydroureteronephrosis. Nonobstructing right renal calculi. Diffuse hepatic steatosis. Cholelithiasis. Colonic diverticulosis. Umbilical hernia pair. Sigmoid surgery with reanastomosis.
[2025-02-17 14:08] VITALS: BP 117/74; PULSE 67; RESP 17; O2SAT 97
[2025-02-17] MEDS ORDERED: OXYC-145 PO (14:31)
== END 2025-02-17 14:48 | disposition home or self-care (01) ==
LOC: ER 09:45
DX: N20.1 Calculus of ureter (principal); F17.210 Nicotine dependence, cigarettes, uncomplicated; Z86.14 Personal history of Methicillin resistant Staphylococcus aureus infection; Z87.19 Personal history of other diseases of the digestive system; Z79.899 Other long term (current) drug therapy; Z56.0 Unemployment, unspecified; Z60.2 Problems related to living alone
CPT/HCPCS: 36415; 74176; 80053; 81001; 83690; 85025; 96361; 96374; 99285; J1885; J7030